=== PATIENT | female | born 1995 | race Caucasian/White ===

== ENCOUNTER 2023-12-11 07:35 | Inpatient (IN) | payer BC, SELFPAY ==
[2023-12-11] VITALS (36 sets, daily range): BP systolic 82–131; BP diastolic 45–84; PULSE 56–96; RESP 16; TEMP 36.6–36.9
[2023-12-11 08:40] LABS: Hematocrit 30.9 % (36.0-48.0); Hemoglobin 10.2 g/dL (12.0-16.0); Mean Corpuscular Hemoglobin 29.9 pg (26.7-34.0); Mean Corpuscular Volume 90.6 fL (81.0-99.0); Platelet Count 175 10^3/uL (150-450); Red Blood Count 3.41 10^6/uL (4.20-5.40); Red Cell Distribution Width 13.2 % (11.0-15.0); White Blood Count 9.1 10^3/uL (4.0-11.0)
[2023-12-11] MEDS: LACTATED RINGER'S SOLUTION 1,000 ML 125 ML IV ×2 (08:49→15:39)
[2023-12-11] MEDS: PENICILLIN G POTASSIUM 5,000,000 UNIT in 0.9 % SODIUM CHLORIDE 100 ML 200 UNIT IV (08:51)
[2023-12-11 09:09] LABS: Amphetamine Screen Urine NEGATIVE (NEGATIVE); Barbiturates Screen Urine NEGATIVE (NEGATIVE); Benzodiazepines Screen Urine NEGATIVE (NEGATIVE); Buprenorphine Screen Urine NEGATIVE (NEGATIVE); Cannabinoid Screen Urine NEGATIVE (NEGATIVE); Cocaine Screen Urine NEGATIVE (NEGATIVE); Methadone Screen Urine NEGATIVE (NEGATIVE); Opiate Screen Urine NEGATIVE (NEGATIVE); Oxycodone Screen Urine NEGATIVE (NEGATIVE); Phencyclidine Screen Urine NEGATIVE (NEGATIVE); Tricyclic Antidepressant Urine NEGATIVE (NEGATIVE)
[2023-12-11 09:10] LABS: Methamphetamines Screen Urine POSITIVE (NEGATIVE)
[2023-12-11] MEDS: PENICILLIN G POTASSIUM 2,500,000 UNIT in 0.9 % SODIUM CHLORIDE 50 ML 100 UNIT IV ×2 (12:31→16:54)
[2023-12-11] MEDS: OXYTOCIN/0.9 % SODIUM CHLORIDE 10 UNITS/500 ML PLAST..BAG 6 UNIT IV (12:50)
--- NOTE | 2023-12-11 14:33 | PM.OBHP ---
OB - H&P: HPI History of Present Illness Chief complaint: INDUCTION : 5 Para: 2 Gestational age based on last menstrual period: 39.5 Indications for induction: other (elective ) History of Present Dating criteria: LMP confirmed by 1st trimester US care: good care Ultrasounds: normal 1st trimester US and normal mid trimester US complications comment: flu A and respiratory infections with this prgnancy Medical complications OB: none Labs Blood type: B (+) positive Rubella: immune RPR/VDLR: nonreactive GBS status: positive HBsAG: negative Review of Systems ROS Status of ROS: 10 or more systems reviewed and unremarkable except as noted in history and below PFSH PFSH Social History Highest level of school completed/degree received: some college, no degree Meds Home Medications and Allergies Home Medications Medication Instructions Recorded Confirmed Type No Known Home Medications 12/11/23 12/11/23 History Allergies Allergy/AdvReac Type Severity Reaction Status Date / Time No Known Drug Allergies Allergy Verified 12/11/23 08:47 Exam Constitutional Vital Signs, click to edit/add: Last Vital Signs Temp 98.4 F 12/11/23 14:17 Pulse 77 12/11/23 14:17 Resp 16 12/11/23 14:17 BP 115/72 12/11/23 14:17 Common normals: no apparent distress HENMT Common normals: normocephalic Eye Common normals: EOMs intact bilaterally Neck & C-Spine Common normals: no lymphadenopathy Lymph Lymphatic: no lymphadenopathy noted Chest Common normals: inspection of chest normal Respiratory Common normals: normal respiratory effort Effort & inspection: able to speak in complete sentences Cardio Common normals: regular rate and regular rhythm Rate: regular rate Rhythm: regular rhythm GI Common normals: Normal to inspection, nondistended, normoactive bowel sounds present Common normals: no CVA tenderness Back & Pelvis Common normals: no CVA tenderness Extremity Common normals: normal to inspection Neuro Common normals: oriented x3 Psych Common normals: mental status grossly normal Results Labs Labs: Short CBC 12/11/23 Range/Units 08:20 WBC 9.1 (4.0-11.0) 10^3/uL Hgb 10.2 L (12.0-16.0) g/dL Hct 30.9 L (36.0-48.0) % Plt Count 175 (150-450) 10^3/uL OB - A/P Assessment and Plan (1) Term :
[2023-12-11] MEDS: ROPIVACAINE HCL/PF 400 MG/200 ML PREMIX 6 MG EPIDURAL (15:38)
[2023-12-11] MEDS: EPHEDRINE SULFATE 50 MG/ML VIAL IV (16:02)
[2023-12-11] MEDS: OXYTOCIN/0.9 % SODIUM CHLORIDE 20 UNITS/1,000 ML PLAST..BAG 125 UNIT IV (18:07)
--- NOTE | 2023-12-11 18:20 | PM.OBPRCVD ---
Procedure Procedure: events: Labor Induction and Labor Augmentation Intrapartal events: None Induction method: per pitocin protocol Delivery augmentation: rupture of membranes Delivery monitor: external FHT and external uterine Route of delivery: Episiotomy Description: none L&D Laceration Description: periurethral - 1st degree Delivery repair: Vicryl Estimated blood loss (mL): 250 Anesthesia type: Epidural Disposition: same day Delivery date: 12/11/23 Gender: female presentation: vertex Placental delivery description: Spontaneous cord description: 3 Vessels heart rate - 1 minute: 100 bpm or Greater respiratory effort - 1 minute: Spontaneous/Strong Cry muscle tone - 1 minute: Active Movement reflex response - 1 minute: Prompt Response color - 1 minute: Bluish Hands or Feet total score - 1 minute: 9 heart rate - 5 minute: 100 bpm or Greater respiratory effort - 5 minute: Spontaneous/Strong Cry muscle tone - 5 minute: Active Movement reflex response - 5 minute: Prompt Response color - 5 minute: Bluish Hands or Feet total score - 5 minute: 9
[2023-12-11] MEDS: IBUPROFEN 400 MG TABLET 800 MG PO (19:32)
[2023-12-11] MEDS: BENZOCAINE/MENTHOL 85 GRAM SPRAY BOTTLE 1 APPLIC TOPICAL (20:09)
[2023-12-11] MEDS: GLYCERIN/WITCH HAZEL PADS 1 PAD TOPICAL (20:10)
[2023-12-12 00:20] VITALS: RESP 18
[2023-12-12 00:28] VITALS: BP 118/65; PULSE 66
[2023-12-12] MEDS: IBUPROFEN 400 MG TABLET 800 MG PO ×2 (05:25→14:56)
--- NOTE | 2023-12-12 07:10 | W.PC.ACHO ---
Registration Status: ADM IN Primary Language: Beninese Preferred Language: Beninese Active Medications Generic Name Dose Route Start Last Admin Trade Name Freq PRN Reason Stop Dose Admin Acetaminophen 650 mg 12/11/23 18:34 Acetaminophen 325 Mg Tablet PO Q6H PRN Mild Pain Al Hydroxide/Mg Hydroxide 2,400 mg 12/11/23 18:34 Magnesium Hydroxide 2,400 Mg/10 Ml Oral.Susp PO Q6H PRN Dyspepsia Benzocaine/Menthol 1 applic 12/11/23 18:34 12/11/23 20:09 Benzocaine/Menthol 85 Gram [place] Bottle TOPICAL 1 applic Q2H PRN Administration Pain Carboprost Tromethamine 250 mcg 12/11/23 07:46 Carboprost Tromethamine 250 Mcg/Ml 1 Ml Vial IM 12/13/23 07:46 Q15M PRN Bleeding Diphtheria/Pertussis/Tetanus Vacc 0.5 ml 12/13/23 09:00 Adacel Diph,Pertuss(Acell),Tet Vac/Pf 0.5 Ml Adult Syringe IM 12/13/23 09:01 .ONCE ONE Docusate Sodium 100 mg 12/12/23 09:00 Docusate Sodium 100 Mg Capsule PO BID SARAH Ephedrine Sulfate 5 mg 12/11/23 13:52 12/11/23 16:02 Ephedrine Sulfate 50 Mg/Ml Vial IV 12/12/23 13:52 5 mg Q5M PRN Administration Blood Pressure - Low Lactated Ringer's 1,000 mls @ 125 mls/hr 12/11/23 08:00 12/11/23 18:00 Lactated Ringers IV Infused .Q8H SARAH Infusion Oxytocin/Sodium Chloride 10 units in 500 mls @ 6 mls/hr 12/11/23 08:00 12/11/23 13:40 Pitocin 10 Unit/500 Ml-Ns IV 4 milliunit/min Q24H SARAH 12 mls/hr Infusion Protocol 2 MILLIUNIT/MIN Ropivacaine/Sodium Chloride 400 mg in 200 mls @ 6 mls/hr 12/11/23 14:00 12/11/23 15:38 Naropin 0.2% 400 Mg/200 Ml Bag EPIDURAL 6 mls/hr Q24H SARAH Administration Ibuprofen 800 mg 12/11/23 18:45 12/12/23 05:25 Ibuprofen 400 Mg Tablet PO 800 mg Q8H SARAH Administration Lidocaine 5 ml 12/11/23 07:46 Lidocaine Viscous 2% 15 Ml Solution TOPICAL ONCE PRN Pain Lidocaine 1 ml 12/11/23 07:46 Lidocaine Hcl 1% 200 Mg/20 Ml Mdv INJ ONCE PRN Pain Lidocaine 5 ml 12/11/23 13:52 Lidocaine Hcl 2% Pf 100 Mg/5 Ml Vial INJ 12/12/23 13:52 Q1H PRN Pain Measles/Mumps/Rubella Vaccine Live 0.5 ml 12/13/23 09:00 Measles,Mumps,Rubella Vacc/Pf 0.5 Ml Vial SQ 12/13/23 09:01 .ONCE ONE Methylergonovine Maleate 0.2 mg 12/11/23 07:46 Methylergonovine Maleate 0.2 Mg/Ml Ampule IM 12/13/23 07:46 ONCE PRN Uterine Contractility/Contract Methylergonovine Maleate 0.2 mg 12/11/23 08:00 Methylergonovine Maleate 0.2 Mg Tablet PO 12/12/23 08:01 Q4H PRN Uterine Contractility/Contract Misoprostol 600 mcg 12/11/23 07:46 Misoprostol 100 Mcg Tablet PO 12/13/23 07:46 ONCE PRN Uterine Bleeding Misoprostol 800 mcg 12/11/23 07:46 Misoprostol 100 Mcg Tablet SL 12/13/23 07:46 ONCE PRN Uterine Bleeding Misoprostol 1,000 mcg 12/11/23 07:46 Misoprostol 100 Mcg Tablet NH 12/13/23 07:46 ONCE PRN Uterine Bleeding Ondansetron HCl 4 mg 12/11/23 07:46 Ondansetron Pf 4 Mg/2 Ml Vial IV Q6H PRN Nausea And Vomiting Ondansetron HCl 4 mg 12/11/23 07:46 Ondansetron 4 Mg Rapdis Tablet SL Q6H PRN Nausea And Vomiting Oxytocin 10 unit 12/11/23 07:46 Oxytocin 10 Unit/Ml Vial IM 12/13/23 07:46 ONCE PRN Bleeding Senna 17.2 mg 12/11/23 20:00 Sennosides 8.6 Mg Tablet PO QHS PRN Constipation Simethicone 80 mg 12/11/23 18:34 Simethicone 80 Mg Tab.Chew PO QID PRN Abdominal Distention Temazepam 15 mg 12/11/23 18:34 Temazepam 15 Mg Capsule PO QHS PRN Sleep Witch Lauren/Glycerin 1 pad 12/11/23 18:34 12/11/23 20:10 Glycerin/Witch Lauren Pads TOPICAL 1 pad Q2H PRN Administration Pain Diet Category Date Time Status Regular Consistency Diet Diet 12/11/23 18:34 Active IV Insertion/Site Date of IV Line Insertion [18g 12/11/23 right Forearm] IV Insertion Time [18g right 08:20 Forearm] Neurology Patient orientation (short person,place,time,situation list) Respiratory Oxygen Delivery Method Room Air Oxygen Delivery Method Room Air Cardiology Heart Sounds Strong,Regular Heart Sounds Strong,Regular
[2023-12-12 08:10] VITALS: BP 120/64; PULSE 69; RESP 16; TEMP 36.6
[2023-12-12 08:12] VITALS: BP 120/64; PULSE 69
[2023-12-12] MEDS: DOCUSATE SODIUM 100 MG CAPSULE PO (08:16)
--- NOTE | 2023-12-12 08:57 | PM.OBPN ---
OB - PN: Subj Subjective Patient comments: no complaints Exam Constitutional Vital Signs, click to edit/add: Last Vital Signs Temp 97.9 F 12/12/23 08:10 Pulse 69 12/12/23 08:12 Resp 16 12/12/23 08:10 BP 120/64 12/12/23 08:12 O2 Del Method Room Air 12/12/23 08:10 Documenting provider has reviewed patient's vital signs: yes Common normals: no apparent distress GI Inspection: normal to inspection Other: uterus firm, nontender, below umbilicus OB - PN: A/P Assessment and Plan (1) Term : Assessment and Plan: Normal Plan Home Plan - Vaginal Delivery day: 7 Plan: routine care, discharge home and follow up 6 weeks Time Spent with Patient Time: Total time spent is greater than 50% in coordination of care (as documented) at patient's floor/unit and/or counseling patient: Total time spent with greater than 50% in coordination of care (as documented) at patient's floor/unit and/or counseling patient: less than 15 minutes
[2023-12-12 15:59] VITALS: BP 116/75; PULSE 84
[2023-12-12 16:12] VITALS: BP 116/75; PULSE 84; RESP 16; TEMP 36.8
--- NOTE | 2023-12-12 19:38 | W.PC.ACHO ---
Registration Status: ADM IN Primary Language: Latvian Preferred Language: Latvian Active Medications Generic Name Dose Route Start Last Admin Trade Name Nicolette PRN Reason Stop Dose Admin Acetaminophen 650 mg 12/11/23 18:34 Acetaminophen 325 Mg Tablet PO Q6H PRN Mild Pain Al Hydroxide/Mg Hydroxide 2,400 mg 12/11/23 18:34 Magnesium Hydroxide 2,400 Mg/10 Ml Oral.Susp PO Q6H PRN Dyspepsia Benzocaine/Menthol 1 applic 12/11/23 18:34 12/11/23 20:09 Benzocaine/Menthol 85 Gram [place] Bottle TOPICAL 1 applic Q2H PRN Administration Pain Carboprost Tromethamine 250 mcg 12/11/23 07:46 Carboprost Tromethamine 250 Mcg/Ml 1 Ml Vial IM 12/13/23 07:46 Q15M PRN Bleeding Diphtheria/Pertussis/Tetanus Vacc 0.5 ml 12/13/23 09:00 Adacel Diph,Pertuss(Acell),Tet Vac/Pf 0.5 Ml Adult Syringe IM 12/13/23 09:01 .ONCE ONE Docusate Sodium 100 mg 12/12/23 09:00 12/12/23 08:16 Docusate Sodium 100 Mg Capsule PO 100 mg BID SARAH Administration Lactated Ringer's 1,000 mls @ 125 mls/hr 12/11/23 08:00 12/11/23 18:00 Lactated Ringers IV Infused .Q8H SARAH Infusion Oxytocin/Sodium Chloride 10 units in 500 mls @ 6 mls/hr 12/11/23 08:00 12/11/23 18:00 Pitocin 10 Unit/500 Ml-Ns IV Infused Q24H SARAH Infusion Protocol 2 MILLIUNIT/MIN Ropivacaine/Sodium Chloride 400 mg in 200 mls @ 6 mls/hr 12/11/23 14:00 12/11/23 15:38 Naropin 0.2% 400 Mg/200 Ml Bag EPIDURAL 6 mls/hr Q24H SARAH Administration Ibuprofen 800 mg 12/11/23 18:45 12/12/23 14:56 Ibuprofen 400 Mg Tablet PO 800 mg Q8H SARAH Administration Lidocaine 5 ml 12/11/23 07:46 Lidocaine Viscous 2% 15 Ml Solution TOPICAL ONCE PRN Pain Lidocaine 1 ml 12/11/23 07:46 Lidocaine Hcl 1% 200 Mg/20 Ml Mdv INJ ONCE PRN Pain Measles/Mumps/Rubella Vaccine Live 0.5 ml 12/13/23 09:00 Measles,Mumps,Rubella Vacc/Pf 0.5 Ml Vial SQ 12/13/23 09:01 .ONCE ONE Methylergonovine Maleate 0.2 mg 12/11/23 07:46 Methylergonovine Maleate 0.2 Mg/Ml Ampule IM 12/13/23 07:46 ONCE PRN Uterine Contractility/Contract Misoprostol 600 mcg 12/11/23 07:46 Misoprostol 100 Mcg Tablet PO 12/13/23 07:46 ONCE PRN Uterine Bleeding Misoprostol 800 mcg 12/11/23 07:46 Misoprostol 100 Mcg Tablet SL 12/13/23 07:46 ONCE PRN Uterine Bleeding Misoprostol 1,000 mcg 12/11/23 07:46 Misoprostol 100 Mcg Tablet ID 12/13/23 07:46 ONCE PRN Uterine Bleeding Ondansetron HCl 4 mg 12/11/23 07:46 Ondansetron Pf 4 Mg/2 Ml Vial IV Q6H PRN Nausea And Vomiting Ondansetron HCl 4 mg 12/11/23 07:46 Ondansetron 4 Mg Rapdis Tablet SL Q6H PRN Nausea And Vomiting Oxytocin 10 unit 12/11/23 07:46 Oxytocin 10 Unit/Ml Vial IM 12/13/23 07:46 ONCE PRN Bleeding Senna 17.2 mg 12/11/23 20:00 Sennosides 8.6 Mg Tablet PO QHS PRN Constipation Simethicone 80 mg 12/11/23 18:34 Simethicone 80 Mg Tab.Chew PO QID PRN Abdominal Distention Temazepam 15 mg 12/11/23 18:34 Temazepam 15 Mg Capsule PO QHS PRN Sleep Witch Lauren/Glycerin 1 pad 12/11/23 18:34 12/11/23 20:10 Glycerin/Witch Lauren Pads TOPICAL 1 pad Q2H PRN Administration Pain Respiratory Oxygen Delivery Method Room Air Oxygen Delivery Method Room Air Oxygen Delivery Method Room Air Cardiology Heart Sounds Strong,Regular Bowels Date of Last Bowel Movement [ 12/12/23 All Quadrants]
[2023-12-14 19:07] LABS: Amphetamines Negative (Cutoff=500)
--- NOTE | 2023-12-15 10:11 | SWNOTE1 ---
SW was not able to see pt prior to discharge. She came in on Thursday12/11/23 and was induced. Pt was in labor most of day Thursday. Pt discharged on Thursday12/12/23. Pt was positive for methamphetamines. She voiced to nursing she has been sick and was taking cough syrup. SW to wait for baby cord results to return and will make report to CPS.
== END 2023-12-12 21:00 | disposition home or self-care (01) | DRG 807 ==
PROVIDERS: Admitting Provider Midwife; PCP Family Medicine; Visit Provider Midwife
DX: O99.824 Streptococcus B carrier state complicating childbirth (principal); Z37.0 Single live birth; O70.0 First degree perineal laceration during delivery; Z3A.39 39 weeks gestation of pregnancy; Z87.440 Personal history of urinary (tract) infections
CPT/HCPCS: 36415; 59050; 59410; 80307; 80326; 85027; 86850; 86900; 86901; 96365; 96366; 96368; 96375; 96376; J2540; J2590; J2795

== ENCOUNTER 2024-01-05 08:13 | Outpatient (OUT) | payer BC, SELFPAY ==
--- OUTSIDE RECORDS SUMMARY | 2024-01-05 08:16 | XMS_ITS | CCD ---
Author Organization [facility] Care Team Providers Care Technical Services Librarian Name Role Phone GAVIN CHRISTIAN Unavailable Unavailable HAY, PEDRO Unavailable Unavailable HAY, PEDRO Unavailable Unavailable JOCELYNN FRANKEL Unavailable Unavailable HAY, PEDRO Unavailable Unavailable Jocelynn Canchola MD Primary Care Pr ovider JOCELYNN CANCHOLA Primary Care Un available FLORO, MARY Admitting Unavailable FLORO, MARY Attending Unavailable JAY, JOSE G Mtz R Admitting Unavailable JAY, JOSE G Mtz R Attending Unavailable FLORO, MARY Primary Care Unavailable JAY, JOSE G Mtz R Attending Unavailable JAY, JOSE G Mtz R Referring Unavailable FLORO, MARY Primary Care Unavailable FLORO, MARY Admitting Unavailable FLORO, MARY Attending Unavailable FLORO, MARY Primary Care Unavailable Jocelynn Frankel MD Primary Care Provider FLORO, MARY L Attending Unavailable FLORO, MARY L Attending Unavailable FLORO, MARY L Referring Unavailable FLORO, MARY L Attending Unavailable FLORO, MARY L Attending Unavailable FLORO, MARY L Attending Unavailable FLORO, MARY L Attending Unavailable FLORO, MARY L Referring Unavailable FLORO, MARY L Attending Unavailable FLORO, MARY L Attending Unavailable Allergies Allergy Classification Reported Allergen(s) Allergy Type Date of Onset Reaction(s) Facility (1 source) MITE EXTRACT Drug Allergy 9 [facility] (1 source) MITE EXTRACT; Translations: [MITE EXTRACT] Drug Allergy 9 [facility] (5 sources) House dust mite Propensity to adverse reactions 9 [facility] Medications Current Medications Medication Drug Class(es) Dates Sig (Normalized) Sig (Original) acetaminophen 500 mg oral tablet (1 source) Start: 03-21-2022 acetaminophen (TYLENOL) tablet 1,000 mg acetaminophen 300 mg / codeine phosphate 30 mg oral tablet (5 sources) Opioid Agonist Start: 11-19-2023 take 1 tablet by mouth every six hours for pain acetaminophen-code ine (TYLENOL/CODEINE #3) 300-30 MG tablet Indications: Right flank pain Take 1 tablet by mouth every 6 (six) hours if needed for moderate pain or severe pain (right flank pain) 10 tablet 0 11/19/2023 Active amoxicillin 500 mg oral tablet (2 sources) Penicillin-class Antibacterial Start: 11-20-2023 End: 11-27-2023 take 1 tablet by mouth in the morning, then take 1 tablet by mouth in the evening, then take 1 tablet by mouth at bedtime amoxicillin (Amoxil) 500 MG tablet Indications: Earache Take 1 tablet (500 mg) by mouth in the morning and 1 tablet (500 mg) in the evening and 1 tablet (500 mg) before bedtime. Do all this for 7 days. 21 tablet 0 11/20/2023 11/27/2023 Active benzocaine 200 mg/ml / menthol 5 mg/ml topical spray (2 sources) Standardized Chemical Allergen Start: 03-21-2022 benzocaine-menthol (DERMOPLAST) 20-0.5 % spray Start: 10-29-2018 End: 03-22-2022 benzocaine-menthol (DERMOPLA ST) 20-0.5 % AERO spray Apply topically 2 times daily 1 Can 3 10/29/2018 03/22/2022 Discontinued (Stop Taking at Discharge) 1 ml carboprost 0.25 mg/ml injection (1 source) Prostaglandin Analog Start: 03-21-2022 carbopros t (HEMABATE) injection 250 mcg docusate sodium 100 mg oral capsule (7 sources) Start: 10-05-2023 take 1 capsule by mouth in the morning docusate sodium (Colace) 100 MG capsule Indications: Anemia during in third trimester Take 1 capsule (100 mg) by mouth in the morning and 1 capsule (100 mg) before bedtime. 60 capsule 5 10/05/2023 Active Start: 10-29-2018 End: 03-22-2022 docusate sodium (COLACE) cap eneida 100 mg ferrous sulfate 325 mg delayed release oral tablet (5 sources) Start: 10-05-2023 take 1 tablet by mouth in the morning ferrous sulfate (Fe Tabs) 325 (65 Fe) MG EC tablet Indications: Anemia during in third trimester Take 1 tablet (325 mg) by mouth in the morning and 1 tablet (325 mg) in the evening. Take with meals. Do not crush, chew, or split.. 60 tablet 5 10/05/2023 Active ibuprofen 800 mg oral tablet (2 sources) Nonsteroidal Anti-inflammatory Drug Start: 10-29-2018 End: 03-22-2022 ibuprofen (ADVIL;MOTRIN) tablet 800 mg lanolin 1000 mg/ml topical cream (2 sources) Start: 03-21-2022 lansinoh lanol in ointment Start: 10-29-2018 End: 03-22-2022 lanolin ointment Apply topic ally as needed. 1 Tube 3 10/29/2018 03/22/2022 Discontinued (Stop Taking at Discharge) 1 ml methylergonovine maleate 0.2 mg/ml injection (1 source) Ergot Derivative Start: 03-21-2022 methylergonovine (METHERGINE) injection 200 mcg miSOPROStol 0.1 mg oral tablet (1 source) Prostaglandin E1 Analog Start: 03-21-2022 miSOPROStol (CYTOTEC) tablet 800 mcg ondansetron 4 mg disintegrating oral tablet (1 source) Serotonin-3 Receptor Antagonist Start: 03-21-2022 ondansetron (ZOFRAN-ODT) disintegrating tablet 8 mg FQTCAF-H2-H6-A84-Z4-H A PO (1 source) take 1 tablet by mouth once daily JNEAKE-A6-A9-B12-D3- FA PO Take 1 tablet by mouth daily 0 Active QAEUDQ-J3-I0-E91-H1-Z ETHYLF-FA PO (5 sources) take 1 tablet by mouth in the morning SLJYKR-A5-A7-B12-D3- METHYLF-FA PO Take 1 tablet by mouth in the morning. 0 Active rho(d) immune globulin, human 1500 unt prefilled syringe (1 source) Human Immunoglobulin G Start: 03-21-2022 rho(D) immune globulin (HYPERRHO S/D) injection 300 mcg 5 ml sodium chloride 9 mg/ml injection (3 sources) Start: 03-21-2022 0.9 % sodium chloride infusion Start: 03-21-2022 sodium chlorid e flush 0.9 % injection 5-40 mL terconazole 4 mg/ml vaginal cream (7 sources) Azole Antifungal Start: 11-18-2023 End: 11-25-2023 terconazole (Terazol 7) 0.4 % vaginal cream Indications: Yeast infection Insert 1 applicator into the vagina at bedtime 45 g 0 11/19/2023 Active witch ricci 500 mg/ml medicated pad (1 source) Start: 03-21-2022 witch ricci-gl ycerin (TUCKS) pad Completed/Discontinued Medications Medication Drug Class(es) Dates Sig (Normalized) Sig (Original) calcium chloride 0.0014 meq/ml / potassium chloride 0.004 meq/ml / sodium chloride 0.103 meq/ml / sodium lactate 0.028 meq/ml injectable solution (1 source) Start: 03-21-2022 End: 03-21-2022 lactated ringers infusion oxytocin (PITOCIN) 30 units in 500 mL infusion (1 source) Start: 03-21-2022 End: 03-21-2022 oxytocin (PITOCIN) 30 units in 500 mL infusion Problems Active Problems Problem Classification Problem Date Documented Da te Episodic/Chronic Fever of unknown origin (1 source) Fever, unspecified; Translations: [Fever, unspecified] Onset: 11-07-2023 Episodic Other and delivery including normal (6 sources) Term ; Translations: [Encounter for supervision of normal , unspecified, unspecified trimester] Onset: 10-27-2018 Episodic Spondylosis; intervertebral disc disorders; other back problems (2 sources) Dorsalgia, unspecified; Translations: [Backache] Onset: 11-07-2023 Episodic Unclassified (1 source) Overexertion from prolonged static or awkward postures, initial encounter; Translations: [OVEREXERT PROLNG STAT/AWK PST INIT] Onset: 05-06-2017 Unclassified (1 source) Other specified diseases and conditions complicating ; Translations: [Other specified diseases and conditions complicating ] Onset: 11-12-2023 Unclassified (1 source) Decreased Movement Onset: 11-07-2023 Unclassified (5 sources) OB Reminders Onset: 05-20-2023 05-20-2023 Past or Other Problems Problem Classification Problem Date Documented Da te Episodic/Chronic Other non-traumatic joint disorders (3 sources) Pain in right ankle and joints of right foot; Translations: [PAIN IN RIGHT ANKLE] Onset: 05-04-2017 Episodic Sprains and strains (1 source) Sprain of unspecified ligament of right ankle, initial encounter; Translations: [SPRAIN UNS LIGAMENT RT ANKLE INIT] Onset: 05-06-2017 Episodic Results Test Name Value Interpretation Reference Range Facility US RENAL COMPLETEon 11-18-19 US RENAL COMPLETE EXAMINATION: US RENAL COMPLETE HISTORY: back pain TECHNIQUE: Ultrasound evaluation was performed of the kidneys and bladder. COMPARISON: None available FINDINGS: Right kidney measures 12.3 x 5.6 x 5 cm. Corticomedullary differentiation is maintained. No contour deforming masses. An echogenic focus within the right kidney measures 5 mm and is most likely a nonobstructing calculus. Mild right-sided hydronephrosis. Left kidney measures 11.2 x 5 x 5.3 cm. Corticomedullary differentiation is maintained. No contour deforming masses or shadowing calculi. Bladder is normal in appearance. Prevoid urinary bladder volume measured at 44 mL. No overt abnormality of the urinary bladder although evaluation is limited secondary to suboptimal distention. The patient voided fully. Bilateral ureteral jets are visualized. IMPRESSION: Mild right-sided hydronephrosis. 5 mm nonobstructing right renal calculus. ELECTRONICALLY SIGNED BY: Juan Obrien, DO Normal Not Available URINALYSISon 11-12-2023 Bilirubin Ql (U) Negative Normal NEG [facility] Comment on above: Performed By: #### U A #### [facility] ([id number]) [address] [place] [address] BLOOD/HGB MODERATE Abnormal NEG [facility] Comment on above: Performed By: #### U A #### [facility] ([id number]) [address] [place] [address] Color (U) YELLOW Normal YELLOW [facility] Comment on above: Performed By: #### U A #### [facility] ([id number]) [address] [place] [address], [place] [address] Glucose Ql (U) Negative Normal NEG [facility] Comment on above: Performed By: #### U A #### [facility] ([id number]) [address] [place] [address], [place] [address] Ketones Ql (U) Negative Normal NEG [facility] Comment on above: Performed By: #### U A #### [facility] ([id number]) [address] [place] [address], [place] [address] Leukocyte esterase Test strip Ql (U) SMALL Abnormal NEG [facility] Comment on above: Performed By: #### U A #### [facility] ([id number]) [address] [place] [address] [place] [address] Nitrite Ql (U) Negative Normal NEG [facility] Comment on above: Performed By: #### U A #### [facility] ([id number]) [address] [place] [address], [place] [address] pH (U) 6.5 [pH] Normal 5.0-8.5 [facility] Comment on above: Performed By: #### U A #### [facility] ([id number]) [address] [place] [address], [place] [address] Protein Ql (U) Negative Normal NEG [facility] Comment on above: Performed By: #### U A #### [facility] ([id number]) [address] [place] [address], [place] [address] R.B.CELLS 10 to 20 Normal 0-5 [facility] Comment on above: Performed By: #### U A #### [facility] ([id number]) [address] [place] [address], [place] [address] Specific gravity (U) [Rel density] 1.015 Normal 1.003-1.035 [facility] Comment on above: Performed By: #### U A #### [facility] ([id number]) [address] [place] [address] SQUAMOUS EPITHELIUM 10 to 20 Normal 0-5 [facility] Comment on above: Performed By: #### U A #### [facility] ([id number]) [address] [place] [address] TURBIDITY CLEAR Normal CLEAR [facility] Comment on above: Performed By: #### U A #### [facility] ([id number]) [address] [place] [address] Urobilinogen Qn (U) 1.0 {Brian'U}/dL Normal <1.1 [facility] Comment on above: Performed By: #### U A #### [facility] ([id number]) [address] [place] [address] W.B.CELLS 5 to 10 Normal 0-5 [facility] Comment on above: Performed By: #### U A #### [facility] ([id number]) [address] [place] [address] SARS/FLU A+B/RSV by NAAT/Mol ecularon 11-07-2023 SARS/FLU A+B/RSV by NAAT/Molecular FLU A PCR Positive (qualifier value) FLU B PCR Negative (qualifier value) RSV by PCR Negative (qualifier value) SARS CoV 2 Not detected (qualifier value) NOTE The Xpert Xpress SARS-CoV-2/Flu/RSV Plus test is a rapid, multiplexed real-time RT-PCR test intended for the simultaneous qualitative detection and differentiation of SARS-CoV-2, influenza A, influenza B and respiratory syncytial virus (RSV) viral RNA from individuals suspected of respiratory viral infection consistent with COVID-19 by their healthcare provider. This test has not been validated in asymptomatic patients. The Xpert Xpress SARS-CoV-2 test is intended for use by qualified and trained operators who are performing tests using either iRezQ or PlayLab systems and is limited to laboratories that meet the CLIA requirements to perform high and moderate complexity tests. The Xpert Xpress SARS-CoV-2/Flu/RSV Plus is only for use under the Food and Drug Administration's Emergency Use Authorization. Results are for the simultaneous detection and differentiation of SARS-CoV-2, influenza A, influenza B and RSV nucleic acids in clinical specimens. SARS-CoV-2, influenza A, influenza B and RSV RNA identified by this test are generally detectable in upper respiratory samples during the acute phase of infection. Positive results are indicative of the presence of the identified virus, but do not rule out bacterial infection or co-infection with other pathogens not detected by this test. Clinical correlation with patient history and other diagnostic information is necessary to determine patient infection status. The agent detected may not be the definite cause of disease. Negative results do not preclude SARS-CoV-2, influenza A, influenza B and RSV infection and should not be used as the sole basis for treatment or other patient management decisions. Negative results must be combined with clinical observations, patient history and epidemiological information. An Invalid result may occur with specimen-associated inhibition unable to be resolved with specimen repeat. Fact Sheet for Healthcare Providers: https://www.fda.gov/ media/651171/downloa d Fact Sheet for Patients: https://www.fda.gov/ media/330552/downloa d [facility] Comment on above: Performed By: #### C OVFLR #### [facility] ([id number]) [address] [place] [address], [place] [address] XR CHEST 2 VWSon 11-07-2023 XR CHEST 2 VWS XR CHEST 2 VWS PA and lateral chest: HISTORY: Cough. 2 views of the chest are obtained. Cardiac and mediastinal contours are within normal limits. Lungs are clear. There is no vascular congestion or effusion. Osseous structures appear intact. IMPRESSION: No acute findings. Finalized by Trip Perea MD on 11/07/2023 10:56 AM [facility] US OB FOLLOW UP TRANSABDOMIN AL APPROACHon 10-07-2023 US OB FOLLOW UP TRANSABDOMINAL APPROACH HISTORY: LMP of 03/09/2023. Follow-up. COMPARISON: 08/05/2023. TECHNIQUE: Sonography of the pelvis was performed by transabdominal technique. Images were obtained and stored in a permanent archive. RESULT: Gestation: Single present. Position: Cephalic Placenta: Location: Posterior Grade: 0 Previa: absent Cervix: Not well visualized. Cardiac activity: 131 bpm BPD: 7.5 cm HC: 27.7 cm AC: 25.8 cm FL: 5.8 cm Amniotic fluid: 14.1, 44.8 percentile Estimated weight (EFW): 1508 g (3 pounds 5 ounces), 31.2 percentile Estimated gestational age: 30 weeks 2 days estimated gestational age by composite. Anatomy: No gross anomalies in the visualized anatomy. IMPRESSION: Single, live intrauterine with estimated 30 weeks 2 days gestational age. ELECTRONICALLY SIGNED BY: Jose Mondragon MD Normal Not Available ABO/RHon 03-22-2022 ABO/Rh Positive [facility] ABO/Rh(D)on 03-22-2022 ABO/Rh(D) Positive [facility] Comment on above: Performed By: #### A BRH #### [facility] [address] [place] [address] Setter Machine: Phil Rivera MD TYPE AND SCREENon 03-22-2022 ABO/Rh Positive [facility] Arm Band Number [id number] [facility] Expiration Date 03/24/2022,2359 [facility] Type + Screenon 03-22-2022 Type + Screen Sample Expiration 03/24/2022,2359 Arm Band Number [id number] ABO/Rh(D) B POSITIVE Antibody Screen NEGATIVE [facility] Comment on above: Performed By: #### T YS #### [facility] [address] [place] [address] Setter Machine: Phil Rivera MD CBC auto differentialon Absolute Eos # 0.17 [facility] Absolute Immature Granulocyte 0.07 [facility] Absolute Lymph # 1.68 [facility] Absolute [place] # 0.83 [facility] Basophils (Bld) [#/Vol] 10*3/uL B ON [facility] Basophils/100 WBC (Bld) 0 % 0 - 2 % B ON [facility] Eosinophils/100 WBC (Bld) 2 % 1 - 4 % [facility] Hematocrit (Bld) [Volume fraction] 33.0 % Low 36.3 - 47.1 % [facility] Hemoglobin (Bld) [Mass/Vol] 11.1 g/dL Low 11.9 - 15.1 g/dL [facility] Immature granulocytes/100 WBC (Bld) 1 % High 0 [facility] Interpretation and review of laboratory results Abnormal [facility] Lymphocytes/100 WBC (Bld) 19 % Low 24 - 43 % [facility] MCH (RBC) [Entitic mass] 31.1 pg 25.2 - 33.5 pg [facility] MCHC (RBC) [Mass/Vol] 33.6 g/dL 28.4 - 34.8 g/dL [facility] MCV (RBC) [Entitic vol] 92.4 fL 82.6 - 102.9 fL [facility] Monocytes/100 WBC (Bld) 10 % 3 - 12 % B ON [facility] NRBC Automated 0.0 0.0 per 100 WBC [facility] Platelet distribution width (Bld) [Ratio] 12.5 % 11.8 - 14.4 % [facility] Platelet mean volume (Bld) [Entitic vol] 11.0 fL 8.1 - 13.5 fL [facility] Platelets (Bld) [#/Vol] 171 10*3/uL [facility] RBC (Bld) [#/Vol] 3.57 10*6/uL Low 3.95 - 5.1 1 m/uL [facility] Segmented neutrophils/100 WBC (Bld) 68 % High 36 - 65 % [facility] Segs Absolute 5.93 [facility] WBC (Bld) [#/Vol] 8.7 10*3/uL [facility] CBC with Diffon 03-21-2022 Abs. Basophil <0.03 Normal 0.00-0.20 [facility] Comment on above: Performed By: #### C DP #### [facility] [address] [place] [address] Dr. [place], [facility] Setter Machine: Phil Rivera MD Abs.Imm.Granulocyte 0.07 k/uL Normal 0.00-0.30 [facility] Comment on above: Performed By: #### C DP #### [address] [place], [facility] Setter Machine: Phil Rivera MD Abs.Neutrophil (Seg) 5.93 k/uL Normal 1.50-8.10 [facility] Comment on above: Performed By: #### C DP #### [address] [place], [facility]83 Setter Machine: Phil Rivera MD Basophils/100 WBC (Bld) 0 % Normal 0-[address] [facility] Comment on above: Performed By: #### C DP #### [address] [place], [facility] Setter Machine: Phil Rivera MD Eosinophils (Bld) [#/Vol] 0.17 10*3/uL Normal 0.00-0.44 [facility] Comment on above: Performed By: #### C DP #### [address] [place], [place] [address] Setter Machine: Phil Rivera MD Eosinophils/100 WBC (Bld) 2 % Normal 1-4 [facility] Comment on above: Performed By: #### C DP #### [address] [place], [facility] Setter Machine: Phil Rivera MD Erythrocyte distribution width (RBC) [Ratio] 12.5 % Normal 11.8-14.4 [facility] Comment on above: Performed By: #### C DP #### [address] [place] [facility] Setter Machine: Phil Rivera MD Hematocrit (Bld) [Volume fraction] 33.0 % Low 36.3-47.1 [facility] Comment on above: Performed By: #### C DP #### [facility] [address] [place] [address] [place] [address] Setter Machine: Phil Rivera MD Hemoglobin (Bld) [Mass/Vol] 11.1 g/dL Low 11.9-15.1 [facility] Comment on above: Performed By: #### C DP #### [facility] [address] [place] [address] [place] [address] Setter Machine: Phil Rivera MD Immature granulocytes/100 WBC (Bld) 1 % High 0 [facility] Comment on above: Performed By: #### C DP #### [facility] [address] [place] [address] [place] [address] Setter Machine: Phil Rivera MD Lymphocytes (Bld) [#/Vol] 1.68 10*3/uL Normal 1.10-3.70 [facility] Comment on above: Performed By: #### C DP #### [facility] [address] [place] [address] [place] [address] Setter Machine: Phil Rivera MD Lymphocytes/100 WBC (Bld) 19 % Low 24-43 [facility] Comment on above: Performed By: #### C DP #### [facility] [address] [place] [address] Dr[place], [facility] Setter Machine: Phil Rivera MD MCH (RBC) [Entitic mass] 31.1 pg Normal 25.2-33.5 [facility] Comment on above: Performed By: #### C DP #### [facility] [address] [place] [address] [place] [address] Setter Machine: Phil Rivera MD MCHC (RBC) [Mass/Vol] 33.6 g/dL Normal 28.4-34.8 [facility] Comment on above: Performed By: #### C DP #### [facility] [address] [place], [place] [id number] Setter Machine: Phil Rivera MD MCV (RBC) [Entitic vol] 92.4 fL Normal 82.6-102.[address] [facility] Comment on above: Performed By: #### C DP #### [facility] [address] [place] [facility]83 Setter Machine: Phil Rivera MD Monocytes (Bld) [#/Vol] 0.83 10*3/uL Normal 0.10-1.20 [facility] Comment on above: Performed By: #### C DP #### [address] [place], [facility]83 Setter Machine: Phil Rievra MD Monocytes/100 WBC (Bld) 10 % Normal 3-[address] [facility] Comment on above: Performed By: #### C DP #### [facility] [address] [place] [address] Dr[place], [facility]83 Setter Machine: Phil Rivera MD Neutrophil (Seg) 68 % High 36-65 [facility] Comment on above: Performed By: #### C DP #### [facility] [address] [place] [address] Dr[place] [facility]83 Setter Machine: Phil Rivera MD NRBC Automated 0.0 per 100 WBC Normal 0.0 [facility] Comment on above: Performed By: #### C DP #### [facility] [address] [place] [id number] Setter Machine: Phil Rivera MD Platelet mean volume (Bld) [Entitic vol] 11.0 fL Normal 8.1-13.5 [facility] Comment on above: Performed By: #### C DP #### [facility] [address] [place] [address] Dr[address] [place] [facility] Setter Machine: Phil Rivera MD Platelets (d) [#/Vol] 171 10*3/uL Normal 138-453 [facility] Comment on above: Performed By: #### C DP #### [facility] [address] [place], [place] [phone] Setter Machine: Phil Rivera MD RBC (d) [#/Vol] 3.57 10*6/uL Low 3.95-5.11 [facility] Comment on above: Performed By: #### C DP #### [facility] [address] [place], [place] [id number] Setter Machine: Phil Rivera MD WBC (d) [#/Vol] 8.7 10*3/uL Normal 3.5-11.3 [facility] Comment on above: Performed By: #### C DP #### [facility] [address] [place], [place] [id number] Setter Machine: Phil Rivera MD DRUG SCREEN MULTI URINEon Amphetamine Screen, Ur Negative NEGATIVE TAB [facility] Barbiturate Screen, Ur Negative NEGATIVE TAB [facility] Benzodiazepine Screen, Urine Negative NEGATIVE [facility] Buprenorphine Urine Negative NEGATIVE [facility] Cannabinoid Scrn, Ur Negative NEGATIVE [facility] [facility] Cocaine Metabolite, Urine Negative NEGATIVE [facility] Methadone Screen, Urine Negative NEGATIVE B [facility] Methamphetamine, Urine Negative NEGATIVE TAB N [facility] Opiates, Urine Negative NEGATIVE [facility] Oxycodone Screen, Ur Negative NEGATIVE [facility] Phencyclidine, Urine Negative NEGATIVE [facility] Propoxyphene, Urine Negative NEGATIVE [facility] Tricyclic Antidepressants, Urine Negative NEGATIVE [facility] Comment on above: Drug screen results are to be used for medical purposes only. All positive results are unconfirmed. Testing for employment or legal uses should be sent to a reference laboratory for confirmation. [facility] Drug Scr, Abuse, Uron 2021 Amphetamine(s),Ur Negative Normal NEG [facility] Comment on above: Performed By: #### D AU #### [facility] [address] [place], [place] [id number] Setter Machine: Phil Rivera MD Barbiturate(s),Ur Negative Normal NEG [facility] Comment on above: Performed By: #### D AU #### [facility] [address] [place], [place] [id number] Setter Machine: Phil Rivera MD Benzodiazepine(s) Negative Normal NEG [facility] Comment on above: Performed By: #### D AU #### [facility] [address] [place], [place] [id number] [employer] Machine: Phil Rivera MD Buprenorphrine, Ur Negative Normal [facility] Comment on above: Performed By: #### D AU #### [facility] [address] [place], [place] [id number] Setter Machine: Phil Rivera MD Cannabinoid(s),Ur Negative Normal NEG [facility] Comment on above: Performed By: #### D AU #### [address] [place], [place] [id number] [employer] Machine: Phil Rivera MD Cocaine Metabolite Negative Normal [facility] Comment on above: Performed By: #### D AU #### [facility] [address] [place] [address] Setter Machine: Phil Rivera MD Methadone Ql (U) Negative Normal NEG [facility] Comment on above: Performed By: #### D AU #### [facility] [address] [place], [place] [id number] Setter Machine: Phil Rivera MD Methamphetamine, Ur Negative Normal [facility] Comment on above: Performed By: #### D AU #### [facility] [address] [place], [place] [id number] Setter Machine: Phil Rivera MD Opiate(s), Ur Negative Normal NEG [facility] Comment on above: Performed By: #### D AU #### [facility] [address] [place] [address] [place], [place] [phone] Setter Machine: Phil Rivera MD Oxycodone, Urine Negative Normal NEG [facility] Comment on above: Performed By: #### D AU #### [facility] [address] [place] [address] [place], [place] [phone] Setter Machine: Phil Rivera MD Phencyclidine, Ur Negative Normal NEG [facility] Comment on above: Performed By: #### D AU #### [facility] [address] [place] [address] [place], [place] [phone] Setter Machine: Phil Rivera MD Propoxyphene,Urine Negative Normal NEG [facility] Comment on above: Performed By: #### D AU #### [facility] [address] [place] [address] [place], [place] [phone] Setter Machine: Phil Rivera MD Tricyclic antidepressants Screen Ql (U) Negative Normal [facility] Comment on above: Result Comment: Drug screen results are to be used for medical purposes only. All positive results are unconfirmed. Testing for employment or legal uses should be sent to a reference laboratory for confirmation. Performed By: #### D AU #### [facility] [address] [place] [address] [place], [place] [phone] Setter Machine: Phil Rivera MD GBS, External Resulton 02-27 GBS, External Result Positive [facility] Work Phone: [facility] [employer] Phone: Q - STREPTOCOCCUS,GROUP B CU LTUREon 02-27-2022 STREPTOCOCCUS, GROUP B CULTURE SEE NOTE Abnormal [facility] [employer] Comment on above: Order Comment: [facility] Testing performed at: [facility], [facility], [address], [address] [place] [address], [address] [place] [address], Hot Metal Charger: Josiah Draper MD [facility] Collection Date/Time: [facility] Results Received Date/Time: [facility] Reported Date/Time: Result Comment: STRE PTOCOCCUS, GROUP B CULTURE Micro Number: [id number] Test Status: Final Specimen Source: Vaginal/anorectal Specimen Quality: Adequate Result: Group B Streptococcus isolated Beta-hemolytic streptococci are predictably susceptible to Penicillin and other beta-lactams. Susceptibility testing not routinely performed. Please contact the laboratory within 3 days if susceptibility testing is desired. Note per CDC guidelines optimal recovery is achieved by swabbing both the lower vagina and rectum (through the anal sphincter). Performed By: #### 5 [id number] #### [facility] Default [address] [place] [address] Q - CBC W/DIFF AND PLTon BASOABS 32 cells/uL Normal 0-200 [facility] Comment on above: Order Comment: [facility] Testing performed at: [facility], [address], [address] [place] [address], [address] [place] [address], Hot Metal Charger: Josiah Draper MD [facility] Collection Date/Time: [facility] Results Received Date/Time: [facility] Reported Date/Time: Performed By: #### 1 5040E, 42A #### [facility] [address] [place] [address] Basophils/100 WBC (Bld) 0.5 % Normal N [facility] Comment on above: Order Comment: [facility] Testing performed at: [facility], [facility], [address], [address] [place] [address], [address] [place] [address], Hot Metal Charger: Josiah Draper MD [facility] Date/Time: [facility] Results Received Date/Time: [facility] Reported Date/Time: Performed By: #### 1 5040E, 42A #### [facility] [address] [place] [address] EOSABS 82 cells/uL Normal 15-500 [facility] [employer] Comment on above: Order Comment: [facility] performed at: [facility], [facility], [address] [place] [address], [address] [place] [address], [address] [place] [address], Hot Metal Charger: Josiah Draper MD [facility] Date/Time: [facility] Results Received Date/Time: [facility] Reported Date/Time: Performed By: #### 1 5040E, 42A #### [facility] [address] [place] [address] Eosinophils/100 WBC (Bld) 1.3 % Normal [facility] [employer] Comment on above: Order Comment: [facility] performed at: [email or web address], [facility], [address] [place] [address], [address] [place] [address], [address] [place] [address], Hot Metal Charger: Josiah Draper MD [facility] Date/Time: [facility] Results Received Date/Time: [facility] Reported Date/Time: Performed By: #### 1 5040E, 42A #### [facility] [address] [place] [address] Erythrocyte distribution width (RBC) [Ratio] 12.4 % Normal 11.0-15.0 [facility] [employer] Comment on above: Order Comment: [facility] performed at: [email or web address], [facility], [address] [place] [address], [address] [place] [address], [address] [place] [address], Hot Metal Charger: Josiah Draper MD [facility] Date/Time: [facility] Results Received Date/Time: [facility] Reported Date/Time: Performed By: #### 1 5040E, 42A #### [facility] [address] [place] [address] Hematocrit (Bld) [Volume fraction] 33.6 % Low 35.0-45.0 [facility] [employer] Comment on above: Order Comment: [facility] performed at: [facility], [facility], [address] [place] [address], [address] [place] [address], [address] [place] [address], Hot Metal Charger: Josiah Draper MD [facility] Date/Time: [facility] Results Received Date/Time: [facility] Reported Date/Time: Performed By: #### 1 5040E, 42A #### [facility] [address] [place] [address] Hemoglobin (Bld) [Mass/Vol] 11.2 g/dL Low 11.7-15.5 [facility] [employer] Comment on above: Order Comment: [facility] Testing performed at: [facility], [facility], [address] [place] [address], [address] [place] [address], [address] [place] [address], Hot Metal Charger: Josiah Draper MD [facility] Date/Time: [facility] Results Received Date/Time: [facility] Reported Date/Time: Performed By: #### 1 5040E, 42A #### [facility] [address] [place] [address] Lymphocytes (Bld) [#/Vol] 1.424 10*3/uL Normal 850-3900 [facility] [employer] Comment on above: Order Comment: [facility] Testing performed at: [facility], [facility], [address] [facility], [address] [place] [address], [address] [place] [address], Hot Metal Charger: Josiah Draper MD [facility] Date/Time: [facility] Results Received Date/Time: [facility] Reported Date/Time: Performed By: #### 1 5040E, 42A #### [facility] [address] [place] [address] Lymphocytes/100 WBC (Bld) 22.6 % Normal [facility] [employer] Comment on above: Order Comment: [facility] performed at: [facility], [facility], [address] [place] [address], [address] [place] [address], Hot Metal Charger: Josiah Draper MD [facility] Date/Time: [facility] Results Received Date/Time: [facility] Reported Date/Time: Performed By: #### 1 5040E, 42A #### [facility] [address] [place] [address] MCH (RBC) [Entitic mass] 32.3 pg Normal 27.0-33.0 [facility] Specialist Comment on above: Order Comment: [facility] performed at: [facility], [facility], [address] [place] [address], [address] [place] [address], [address] [place] [address], Hot Metal Charger: Josiah Draper MD [facility] Date/Time: [facility] Results Received Date/Time: [facility] Reported Date/Time: Performed By: #### 1 5040E, 42A #### [facility] [address] [place] [address] MCHC (RBC) [Mass/Vol] 33.3 g/dL Normal 32.0-36.0 [facility] Specialist Comment on above: Order Comment: [facility] Testing performed at: [facility], [facility], [address] [place] [address], [address] [place] [address], Hot Metal Charger: Josiah Draepr MD [facility] Date/Time: [facility] Results Received Date/Time: [facility] Reported Date/Time: Performed By: #### 1 5040E, 42A #### [facility] [address] [place] [address] MCV (RBC) [Entitic vol] 96.8 fL Normal 80.0-100.0 N [facility] Comment on above: Order Comment: [facility] performed at: [facility], [facility], [address] [place] [address], [address] [place] [address], Hot Metal Charger: Josiah Draper MD [facility] Date/Time: [facility] Results Received Date/Time: [facility] Reported Date/Time: Performed By: #### 1 5040E, 42A #### [facility] [address] [place] [address] MONOABS 567 cells/uL Normal 200-950 [facility] Comment on above: Order Comment: [facility] Testing performed at: [facility], [facility], [address] [facility], [address] [place] [address], [address] [place] [address], Hot Metal Charger: Josiah Draper MD [facility] Date/Time: [facility] Results Received Date/Time: [facility] Reported Date/Time: Performed By: #### 1 5040E, 42A #### [facility] [address] [place] [address] Monocytes/100 WBC (Bld) 9.0 % Normal [facility] Comment on above: Order Comment: [facility] Testing performed at: [facility], [address] [place] [address], [address] [place] [address], [address] [place] [address], Hot Metal Charger: Josiah Draper MD [facility] Collection Date/Time: [facility] Results Received Date/Time: [facility] Reported Date/Time: Performed By: #### 1 504, 42A #### [facility] [address] [place] [address] Neutrophils (Bld) [#/Vol] 4.196 10*3/uL Normal 3498-6915 [facility] Comment on above: Order Comment: [facility] performed at: [facility], [address] , [address] [place] [address], [address] [place] [address], Hot Metal Charger: Josiah Draper MD [facility] Collection Date/Time: [facility] Results Received Date/Time: [facility] Reported Date/Time: Performed By: #### 1 5040E, 42A #### [facility] [address] [place] [address] Neutrophils/100 WBC (Bld) 66.6 % Normal [facility] Comment on above: Order Comment: [facility] performed at: [facility], [facility], [address] , [address] [place] [address], [address] [place] [address], Hot Metal Charger: Josiah Draper MD [facility] Date/Time: [facility] Results Received Date/Time: [facility] Reported Date/Time: Performed By: #### 1 5040E, 42A #### [facility] [address] [place] [address] Platelet mean volume (Bld) [Entitic vol] 10.1 fL Normal 7.5-12.5 [facility] Comment on above: Order Comment: [facility] Testing performed at: [facility], [facility], [address] [facility], [address] [place] [address], [address] [place] [address], Hot Metal Charger: Josiah Draper MD [facility] Collection Date/Time: [facility] Results Received Date/Time: [facility] Reported Date/Time: Performed By: #### 1 5040E, 42A #### [facility] [address] [place] [address] Platelets (Bld) [#/Vol] 192 10*3/uL Normal 140-400 [facility] Specialist Comment on above: Order Comment: [facility] Testing performed at: [facility], [facility], [address] , [address] [place] [address], [address] [place] [address], Hot Metal Charger: Josiah Draper MD [facility] Collection Date/Time: [facility] Results Received Date/Time: [facility] Reported Date/Time: Performed By: #### 1 5040E, 42A #### [facility] [address] [place] [address] RBC (Bld) [#/Vol] 3.47 10*6/uL Low 3.80-5.10 [facility] Comment on above: Order Comment: [facility] Testing performed at: [facility], [facility], [address] , [address] [place] [address], [address] [place] [address], Hot Metal Charger: Josiah Draper MD [facility] Collection Date/Time: [facility] Results Received Date/Time: [facility] Reported Date/Time: Performed By: #### 1 Makayla, 42A #### [facility] [address] [place] [address] WBC (Bld) [#/Vol] 6.3 10*3/uL Normal 3.8-10.8 Sebastian eli [place] [employer] Developer Comment on above: Order Comment: [facility] performed at: [facility], [facility], [address] [facility], [address] [place] [address], [phone], Hot Metal Charger: Josiah Draper MD [facility] Collection Date/Time: [facility] Results Received Date/Time: [facility] Reported Date/Time: Performed By: #### 1 504Marie, 42A #### [facility] Default [address] [place] [address] Q - GLUCOSE,GESTATIONAL SCRE EN(50G)-135 CUTOFFon 01-01-2022 Glucose [Mass/Vol] 60 mg/dL Low <135 Sebastian rn [place] [employer] Comment on above: Order Comment: [facility] performed at: [facility], [facility], [address] [facility], [address] [place] [address], [phone], Hot Metal Charger: Josiah Draper MD [facility] Collection Date/Time: [facility] Results Received Date/Time: [facility] Reported Date/Time: Performed By: #### 1 5040E, 42A #### [facility] Default [address] [place] [address] US OB 2nd/3rd Trimesteron US OB 2nd/3rd Trimester FINDINGS: Comparison is made with the prior examination of August 27, 2021. A single, viable intrauterine is present with adequate cardiac (134 beats per minute) and activity and amniotic fluid volume. Amniotic fluid index is 10.0 cm. Morphology is grossly normal. The cervix is long and closed, 4.9 cm. The placenta is anterior, not associated with the cervical os. The current sonographic age is 19 weeks and 0 days, based on the following measurements: BPD 4.2 cm (18 weeks, 5 days) Head Lwrqvczrwbgje83.3 cm (19 weeks, 0 days) Abdominal Vmultppfletdk56.9 cm (19 weeks, 2 days) Femur Length 3.0 cm (19 weeks, 2 days) PresentationBreech Placenta Anterior Grade I Weight (g) by Percentile 13.6%* These measurements result in an estimated date of delivery of April 01, 2022 . The current estimated weight is 282 grams (10 ounces). IMPRESSION: 1. Single, viable intrauterine , current sonographic age of 19 weeks and 0 days, with an estimated date of delivery of April 01, 2022. Estimated date of delivery on the prior examination was April 01, 2022. 2. ABELARDO of 10.0 cm. *Estimated Weight (g) by Percentile is based upon an accurate estimated age based on last menstrual period. Report reported and signed by Christopher Hoffmann on 11/06/2021 0958 Normal [facility] Geospatial Developer ABO, External Resulton 08-27 ABO, External Result B [employer] Phone: C. Trachomatis, External Res [facility] 08-27-2021 C. Trachomatis, External Result Not detected [employer] Phone: HIV, External Resulton 08-27 HIV, External Result Non-Reactive TAB [employer] Phone: Hepatitis B, External Result on 08-27-2021 Hep B, External Result HBSAG non reactive [employer] Phone: N. Gonorrhoeae, External Res [facility] 08-27-2021 N. Gonorrhoeae, External Result Not detected [employer] Phone: No Panel Informationon 08-27 ABO, External Result Positive [employer] Phone: [employer] Phone: No Panel InformationOrdered By: Mary Morton on 08-27-2021 Rh Factor, External Result Positive [facility] RPR, External Labon 08-27-20 21 RPR, External Result Non-Reactive TAB N [employer] Work Phone: Rubella Titer, External Resu lton 08-27-2021 Rubella Titer, External Result immune [facility] [employer] Work Phone: XR ANKLE RT MIN 3 VIEWSon XR ANKLE RT MIN [address] [place] [phone] Patient: CHET ROBINS Exam Date: 05/04/2017DOB: 1995 Gender:F : DR PEDRO SUH . Admission #: [id number] : DR JOCELYNN FRANKEL M.D. Order #: [id number] HERE TO VIEW EXAM RADIOLOGY REPORT PROCEDURE: RADIOGRAPH ANKLE RIGHT MIN 3 VIEWS COMPARISON: None. INDICATIONS: Acute right ankle pain after injury; lateral ankle pain FINDINGS: BONES: No fracture, acute abnormality, or significant arthropathy. SOFT TISSUES: Mild anterior lateral soft tissue swelling.EFFUSION: None visible. OTHER: Negative. CONCLUSION: 1. No acute bone abnormality. Dictated by: Gavin Christian M.D. on 05/04/2017 at 10:32 Approved by: Gavin Christian M.D. on 05/04/2017 at 10:34 Normal [facility] Vital Signs Date Time Vital Sign Value Performing Clinician Facility 12-02-2023 14:52-0500 Body mass index (BMI) [Ratio] 34.2 kg/m2 Mary [employer] [facility] Work Phone: [facility] 12-02-2023 14:52-0500 Body weight 86.18 kg Mary [employer] Work Phone: [facility] 12-02-2023 14:52-0500 Diastolic blood pressure 80 mm[Hg] Mary Dobson [employer] Work Phone: [facility] 12-02-2023 14:52-0500 Systolic blood pressure 120 mm[Hg] Mary Dobson CNM Work Phone: [facility] 11-24-2023 15:23-0500 Body mass index (BMI) [Ratio] 34.2 kg/m2 Mary Dobsno CNM Work Phone: [facility] 11-24-2023 15:23-0500 Body weight 86.18 kg Mary GONZALEZM Work Phone: [facility] 11-24-2023 15:23-0500 Diastolic blood pressure 70 mm[Hg] Mary GONZALEZM Work Phone: [facility] 11-24-2023 15:23-0500 Systolic blood pressure 110 mm[Hg] Mary GONZALEZM Work Phone: [facility] 03-22-2022 16:43-0400 Body temperature 97.39 [degF] Mary Dobson APRN - CNM Work Phone: [facility] [employer] 03-22-2022 16:43-0400 Diastolic blood pressure 77 mm[Hg] Mary Dobson APRN - CNM Work Phone: [employer] [facility] [employer] 03-22-2022 16:43-0400 Heart rate 80 /min Mary Dobson APRN - CNM Work Phone: [facility] [employer] 03-22-2022 16:43-0400 Respiratory rate 16 /min Mary Dobson APRN - CNM Work Phone: [facility] [employer] 03-22-2022 16:43-0400 Systolic blood pressure 131 mm[Hg] Mary Dobson APRN - CNM Work Phone: [facility] [employer] 03-21-2022 17:11-0400 SaO2% (BldA) [Mass fraction] 100 % Mary Dobson APRN - CNM Work Phone: [facility] [employer] 03-21-2022 07:55-0400 Body height 167.6 cm Mary Dobson APRN - CNM Work Phone: [facility] 03-21-2022 07:55-0400 Body mass index (BMI) [Ratio] 31.47 kg/m2 Mary Edgeo [employer] - CNM Work Phone: [facility] 03-21-2022 07:55-0400 Body weight 88.45 kg Mary Dobson [employer] - CNM Work Phone: [facility] Encounters Encounter Date Encounter Type Care Provider Facility Start: 12-24-2023 End: 12-25-2023 ambulatory MARY L FLORO Not Available Start: 12-09-2023 End: 12-10-2023 ambulatory MARY L FLORO Not Available Start: 12-02-2023 End: 12-03-2023 ambulatory MARY L FLORO Not Available Start: 12-02-2023 End: 12-02-2023 Subsequent care visit Mary L Floro CNM Work Phone: [facility] Comment on above: Encounter for superv ision of other normal , third trimester (Primary Dx) Start: 12-02-2023 Bamboo flowsheet Mary L Misha ro CNM Work Phone: [facility] Start: 12-02-2023 Bamboo flowsheet Mary L Misha ro CNM Work Phone: [facility] Start: 11-24-2023 End: 11-25-2023 ambulatory MARY L FLORO Not Available Start: 11-24-2023 End: 11-24-2023 Subsequent care visit Mary L Floro CNM Work Phone: [facility] Comment on above: Encounter for superv ision of other normal , third trimester (Primary Dx) Start: 11-18-2023 End: 11-19-2023 ambulatory MARY L FLORO Not Available Start: 11-12-2023 End: 11-13-2023 ambulatory MARY L FLORO Not Available Start: 11-12-2023 End: 11-12-2023 ambulatory MARY FLORO [facility] Start: 11-07-2023 End: 11-08-2023 ambulatory JOSE G Jade JAY [facility] Start: 11-07-2023 End: 11-07-2023 ambulatory JOSE G Jade JAY [facility] Start: 10-29-2023 End: 10-30-2023 ambulatory MARY DOBSON Not Available Start: 10-07-2023 End: 10-08-2023 ambulatory MARY EDGEO Not Available Start: 09-07-2023 End: 09-08-2023 ambulatory MARY EDGEO Not Available Start: 03-21-2022 End: 03-22-2022 Evaluation and management of inpatient [facility] Start: 03-21-2022 End: 03-22-2022 Evaluation and management of inpatient Mary oDbson [employer] - CNM Work Phone: [facility] Start: 05-04-2017 End: 05-04-2017 Ambulatory GAVIN CHRISTIAN Facility: Procedures Date Procedure Procedure Detail Performing Clinician Start: 03-22-2022 Blood typing serolog ic abo Silke P Hotelling [employer] - CNM Work Phone: Start: 03-22-2022 Antibody screen Mary Dobson [employer] - CNM Work Phone: Start: 03-21-2022 Blood count complete auto&auto difrntl wbc Mary Dobson [employer] - CNM Work Phone: Start: 03-21-2022 Blood typing serolog ic abo Silke P Hotelling [facility] [employer] - CNM Work Phone: Start: 02-27-2022 GBS, EXTERNAL RESULT Hi storical Provider Start: 08-27-2021 ABO, EXTERNAL RESULT Hi rajical Provider Start: 08-27-2021 C. TRACHOMATIS, EXTE RNAL RESULT Historical Provider Start: 08-27-2021 HEPATITIS B, EXTERNA L RESULT Historical Provider Start: 08-27-2021 HIV, EXTERNAL RESULT Hi storical Provider Start: 08-27-2021 N. GONORRHOEAE, EXTE RNAL RESULT Historical Provider Start: 08-27-2021 RH FACTOR, EXTERNAL RESULT Historical Provider Start: 08-27-2021 RPR, EXTERNAL RESULT Hi storical Provider Start: 08-27-2021 RUBELLA TITER, EXTER NAL RESULT Historical Provider Plan of Treatment Date Care Activity Detail Author Start: 12-09-2023 End: 12-09-2023 Patient encounter procedure 12/09/2023 9:00 AM EST Routine [facility] [address] [place] [address] Mary Dobson CNM [address] [place], [place] [id number] [facility] Start: 12-02-2023 End: 12-02-2023 Patient encounter procedure [facility] Comment on above: Arrived Start: 06-19-2023 Influenza vaccination Influenza Vacc ine (#1) [facility] Start: 07-08-2022 DTaP/Tdap/Td vaccine (7 - Tdap) DTaP/Tdap/Td vaccine (7 - Tdap) [facility] [employer] [facility] Start: 06-19-2022 Influenza vaccination Flu vacc ine (Season Ended) [facility] Start: 03-25-2019 Screening for Chlamy jesica trachomatis Chlamydia screen [facility] Start: 2017 Screening for malign ant neoplasm of cervix Pap smear [facility] [employer] [facility] Start: 2014 Hepatitis C screening Hepatitis C sc reen [facility] Start: 2008 Depression Screen Depression Screen [facility] Start: 2007 HPV vaccine (1 - 2-d ose series) HPV vaccine (1 - 2-dose series) [employer] [facility] [employer] Start: 2001 COVID-19 Vaccine (1) COVID-19 Vaccin e (1) [employer] [facility] [employer] [facility] Start: 1997 Varicella vaccine (1 of 2 - 2-dose childhood series) Varicella vaccine (1 of 2 - 2-dose childhood series) [facility] End: 03-21-2022 RHOGAM RHOGAM Blood Bank Routine One Time for 1 Occurrences starting 03/21/2022 until 03/21/2022 [employer] Work Phone: Comment on above: One Time for 1 Occur rences starting 03/21/2022 until 03/21/2022 Immunizations Immunization Date Immunization Notes Care Provider Vidhi bynum 03-21-2022 diphtheria, tetanus toxoids and acellular pertussis vaccine, unspecified formulation Mary Dobson [employer] Work Phone: [employer] Work Phone: 03-21-2022 measles, mumps and rubella virus vaccine Maryjared Dobson [employer] Work Phone: [employer] Work Phone: Payers Date Payer Category Payer Unknown BCBS BCBS [id number] 2022-Present [phone] [address] [place] [address] [id number] 2022 Unknown [id number] 2018 Medicaid [id number] 1996 Unknown [id number] 73 1996 Unknown [id number] 286 1996 Unknown [id number] 286 1996 Unknown [id number] 286 1996 Unknown [id number] [id number] 259 1996 Unknown [id number] [id number] 259 1996 Unknown [id number] [id number] 259 1996 Unknown [id number] [id number] 259 1996 Unknown [id number] [id number] 259 1996 Unknown [id number] [id number] 259 1996 Unknown [id number] [id number] 259 1996 Unknown [id number] [id number] 259 1996 Unknown [id number] 259 1996 Unknown [id number] 259 1959 Private Health Insurance [id number] Social History Date Type Detail Facility Start: 10-27-2018 End: 05-10-2023 Tobacco smoking status [facility] Never smoked tobacco [employer] Phone: Start: 10-27-2018 End: 05-10-2023 Tobacco use and exposure Smokeless tobacco non-user [employer] Phone: Start: 03-21-2022 Alcohol intake 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 (finding) [employer] Phone: Start: 1996 Sex Assigned At Not on file B ON [email or web address] Phone: Start: 08-17-2023 Alcohol intake Ex-drinker (finding) [facility] Start: 05-19-2023 History of Social function [facility] Start: 05-19-2023 Tobacco use panel [facility] Start: 05-10-2023 Alcohol Comment Alcohol: 1 or 2 drinks on a typical day/monthly or less Caffeine: 1-2 cups/day coffee [facility] Start: 03-23-2023 [facility] Start: 1995 Sex Assigned At Female N [facility] Start: 05-11-2023 Gender identity Identifies as female gender (finding) [facility] Goals Date Patient Goal Desired Activity /State Personal health goal History of Present illness Narrative 11-24-2023 Mary Dobson CNM - 11/24/2023 3:30 PM EST Note Date & Type Note Facility 11-24-2023 History of Presen t illness Narrative Subjective No chief complaint on file. Chet Robins is a 28 y.o. at 37w1d with a working estimated date of delivery of 12/14/2023, by Last Menstrual Period who presents for a routine visit. She denies vaginal bleeding, leakage of fluid, decreased movements, or contractions. Her is complicated by: Objective Physical Exam weight: 190 lb Expected Total Weight Gain: 11 lb-19 lb Pregravid BMI: 32.02 BP: 110/70 Urine glucose-negative,protein-negative Assessment/Plan Diagnoses and all orders for this visit: Encounter for supervision of other normal , third trimester Continue vitamin. Labs reviewed. GBS POSITIVE Expected mode of delivery Follow up in 1 week for a routine visit. documented in this encounter [facility] Discharge instructions 03-22-2022 Instructions Note Date & Type Note Facility 03-22-2022 Hospital Discharg e instructions Mary Morton RN - 03/22/2022 Follow-up with your OB doctor as specified. [facility] OB Department phone: Sarah Dobson, MSN, [place], ABRAN [address]ETShantanu [facility] [address] DIET Eat a well balanced diet focusing on foods high in fiber and protein. Drink plenty of fluids especially water. To avoid constipation you may take a mild stool softener as recommended by your doctor or database security administrator. ACTIVITY Gradually increase your activity. Resume exercise regimen only after advice by your doctor or database security administrator. Avoid lifting anything heavier than a gallon of milk for SIX weeks. Avoid driving until your doctor or database security administrator has given their approval. Rise slowly from a lying to sitting and then a standing position. Climb stairs one at a time. Use caution when carrying your baby up and down the stairs. NO SEXUAL Activity for 4-6 weeks or until advised by your doctor; Nothing in vagina: intercourse, tampons, or douching. Be prepared to discuss family planning at your follow-up OB visit. You may feel tired or have a lack of energy. You may continue your vitamin to replenish nutrients post delivery. Nap when baby naps to catch up on sleep. EMOTIONS You may feel asencio, sad, teary, & overwhelmed. Contact your OB provider if you feel you may be showing signs of depression, or have thoughts of harming yourself or your . If will not stop crying, contact another adult for help or place infant in their crib on their back and take a break. NEVER shake your infant. BLEEDING Vaginal bleeding will decrease in amount over the next few weeks. You will notice that as your activity increases, your flow may increase. This is your body's way of telling you, you need to take things easier and rest more often. Call your care provider if you are saturating more than one maxi pad in an hour & resting does not help. BREAST CARE Take medications as recommended by your doctor or database security administrator for pain If you develop a warm, red, tender area on your breast or develop a fever contact your OB provider. For moms: If you become engorged, feeding may be more difficult or painful for 1-2 days. You may find it helpful to hand express some milk so that the can latch on more easily. While , continue to take your vitamins as directed by your doctor or database security administrator. Refer to the booklet in the folder/binder for more information. If you feel you need more assistance or have questions, please call Mel Sales IBGEORGETTE, business solutions consultant, at or the OB department to schedule an appointment or phone consultation. For more FREE help, visit the Support Group on Thursday evenings at 7 pm in the OB department. For NON- moms: You may apply ice packs to your breasts over your bra for twenty minutes at a time for comfort. Avoid stimulation to your breasts, when showering allow the water to strike your back not your breasts. Wear a good fitting bra until your milk dries, such as a sports bra. RADHA CARE Use the radha-bottle after toileting until bleeding stops. Cleanse your perineum from front to back If used, stitches will dissolve in 4-6 weeks. You may use a sitz bath or soak in a clean tub as needed for comfort. Kegel exercises will help restore bladder control. SWELLING Try to keep your legs elevated when you are sitting. When lying down keep your legs elevated. When wearing stocking or socks, make sure they are not too tight. WHEN TO CALL THE DOCTOR If you have a temp of 100.6 or more. If your bleeding has increased and you are saturating a pad in an hour. Your abdomen is tender to touch. You are passing blood clots bigger than the size of a lemon. If you are experiencing extreme weakness or dizziness. If you are having flu-like symptoms such as achy muscles or joints. There is a foul smell or a green color to your vaginal bleeding. If you have pain that cannot be relieved. You have persistent burning or frequency with urination. Call if you have concerns about your well-being. You are unable to sleep, eat, or are having thoughts of harming yourself or your baby. You have swelling, bleeding, drainage, foul odor, redness, or warmth in/around your incision or stitches. You have a red, warm, tender area in your calf. documented in this encounter [facility] [employer] Work Phone: History of Present illness Narrative 03-21-2022 Jenifer Velasquez RN - 03/21/2022 7:30 PM ANNALEETCember Velasquez RN - 03/21/2022 7:[address] CNM - 03/21/2022 9:21 AM EDT Note Date & Type Note Facility 03-21-2022 History of Present illness Narrative Recovery complete at this time. Bookmaker'S Clerk contacted Bharati Dobson CNM at this time to update that patients blood type is crossing over as B negative due to it being that blood type back in 2018. Bookmaker'S Clerk was verifying if patient would need to receive rhogam or if infants blood type needed to be ran. Per Bharati Dobson CNM, on 08/27/2021, patients blood type was B POSITIVE, therefore patient does not need rhogam and infants cord blood does not need to be ran to obtain blood type. No further orders received at this time. AROM Small amount of clear fluid SVE 2 inner os 3 outer os Update to Alexandr Dobson APRN, CNM documented in this encounter [facility] Work Phone: Clinical Note 01-15-2022 Note Date & Type Note Facility 01-15-2022 Note FINDINGS: Comparison is made with prior ultrasound evaluations of August 27, 2021 and November 06, 2021. A single, live intrauterine is present with normal cardiac rate of 123 beats per minute. Normal activity and amniotic fluid volume. Amniotic fluid index is 16 cm. Morphology is grossly normal. The cervix is long and closed, 4 cm. The placenta is anterior, not associated with the cervical os. The current sonographic age is 30 weeks and 1 day, based on the following measurements: BPD 7.5 cm (30 weeks, 0 days) Head Circumference 27.4 cm (29 weeks, 6 days) Abdominal Circumference 25.5 cm (29 weeks, 5 days) Femur Length 5.9 cm (30 weeks, 6 days) Presentation Cephalic Placenta Anterior Grade I Weight (g) by [id number] % * These measurements result in an estimated date of delivery of March 25, 2022. The current estimated weight is 1510 grams (3 pounds, 5 ounces). IMPRESSION: 1. Single, live intrauterine , current sonographic age of 30 weeks and 1 day, with an estimated date of delivery of March 25, 2022 (prior BENJIE April 01, 2022) 2. Current estimated weight 1510 grams (3 pounds, 5 ounces) * Estimated Weight (g) by Percentile is based upon an accurate estimated age based on last menstrual period. Report reported and signed by Christopher Hoffmann on 01/15/2022 111[address] [facility] [employer] Evaluation note Note Date & Type Note Facility Evaluation note Diagnosis Term - Primary documented in this encounter [facility] [employer] Work Phone: Evaluation note Note Date & Type Note Facility Evaluation note Diagnosis Encounter for supervision of other normal , third trimester- Primary documented in this encounter [facility] Evaluation note Note Date & Type Note Facility Evaluation note Diagnosis Encounter for supervision of other normal , third trimester- Primary documented in this encounter [facility] History of Present illness Narrative Mary Dobson CNM - 12/02/2023 3:30 PM EST Note Date & Type Note Facility History of Present illness Narrative Subjective No chief complaint on file. Chet Robins is a 28 y.o. at 38w2d with a working estimated date of delivery of 12/14/2023, by Last Menstrual Period who presents for a routine visit. She denies vaginal bleeding, leakage of fluid, decreased movements, or contractions. Her is complicated by: threatened early Objective Physical Exam weight: 190 lb Expected Total Weight Gain: 11 lb-19 lb Pregravid BMI: 32.02 BP: 120/80 Urine glucose-negative,protein-negative Assessment/Plan Diagnoses and all orders for this visit: Encounter for supervision of other normal , third trimester Continue vitamin. Labs reviewed. GBS + positive Expected mode of delivery Follow up in 1 week for a routine visit. 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 ACP-Advance Directive ACP-Power of Public Safety Police Latest Code Status on File Code Status Date Activated Date Inactivated Comments Full Code 03/21/2022 6:29 PM Full Code 03/21/2022 6:18 AM 03/21/2022 6:29 PM Full Code 10/27/2018 9:30 PM 10/29/2018 8:11 PM Full Code 10/27/2018 3:34 PM 10/27/2018 9:30 PM Additional Source Comments INFORMATION SOURCE (unrecogn ized section and content) DATE CREATED AUTHOR 04/14/2018 [facility] DATE CREATED AUTHOR AUTHOR'S ORGANIZ ATION 03/02/2022 [facility] DATE CREATED AUTHOR AUTHOR'S ORGANIZ ATION 03/24/2022 [facility] DATE CREATED AUTHOR AUTHOR'S ORGANIZ ATION 11/15/2023 [facility] DATE CREATED AUTHOR AUTHOR'S ORGANIZ ATION 12/28/2023 [facility] Special[facility] EPIC Reason for Visit (unrecogniz ed section and content) Reason Comments Scheduled Induction Scheduled Active and Recently Administ ered Medications (unrecognized section and content) Medication Order 03/20/2022 03/21/2022 03/22/2022 benzocaine-menthol (DERMOPLAST) 20-0.5 % spray Topical, 2 TIMES DAILY, First dose on Thu03/21/22 at 2100, Apply to perineal area. Patient is capable and may self administer at bedside., 2105 (Given - Provider: Jenifer Velasquez RN) 0900 (Due)2100 (Due) measles, mumps & rubella vaccine (MMR) injection 0.5 mL 0.5 mL, SubCUTAneous, PRIOR TO DISCHARGE, 1 dose, Starting on Thu03/21/22 at 1829, Until Discontinued, penicillin G potassium 5 Million Units in dextrose 5 % 100 mL IVPB (mini-bag) (COMPLETED) 5 Million Units, IntraVENous, ONCE, 1 dose, On Thu03/21/22 at 0645, Antimicrobial Indications: GBS Prophylaxis, Labor and Delivery 0743 (New Bag - Provider: Mary Morton, RN)0815 (Stopped - Provider: Mary Morton, RN) penicillin G potassium in d5w IVPB 2.5 Million Units (CANCELED) 2.5 Million Units, IntraVENous, EVERY 4 HOURS, First dose on Thu03/21/22 at 1030, Until Discontinued, Antimicrobial Indications: GBS Prophylaxis, Begin 4 hours after loading dose. Continue until delivery., Labor and Delivery 1209 (New Bag - Provider: Mary Morton RN)1244 (Stopped - Provider: Mary Morton RN)1554 (New Bag - Provider: Mary Morton, RN)1630 (Stopped - Provider: Mary Morton RN) sodium chloride flush 0.9 % injection 5-40 mL 5-40 mL, IntraVENous, EVERY 12 HOURS SCHEDULED (2 times per day), First dose on Thu03/21/22 at 2100, Until Discontinued, For Line Patency: Peripheral IV = 5 mL; Midline or Central Line = 10 mL/lumen. If following IV push medication, administer flush at same rate as the IV push. Flush volume is determined by type of infusion therapy being given. For non-viscous solutions use: Peripheral IV = 5 mL Midline or Central Line = 10 mL/lumen For viscous solutions (i.e. blood components, parenteral nutrition, contrast media, or after obtaining blood sample) use: Peripheral IV = 10 mL Midline or Central Line = 20 mL/lumen, 2100 (Due) 0900 (Due)2100 (Due) rzydwvm-wfhcmb-pvxcp pertussis (BOOSTRIX) injection 0.5 mL 0.5 mL, IntraMUSCular, PRIOR TO DISCHARGE, 1 dose, Starting on Thu03/21/22 at 1829, Until Discontinued, If not previously administered during at 27-36 weeks as recommended by CDC., witch ricci-glycerin (TUCKS) pad Topical, 2 TIMES DAILY, First dose on Thu03/21/22 at 2100, Apply to perineal area. Patient is capable and may self administer at bedside., 2106 (Given - Provider: Jenifer Velasquez RN) 0900 (Due)2100 (Due) Continuous Medication Order 03/20/2022 03/21/2022 03/22/2022 lactated ringers infusion (CANCELED) IntraVENous, at 125 mL/hr, CONTINUOUS, Starting on Thu03/21/22 at 0645, Labor and Delivery 0720 (New Bag - Provider: Mary Morton RN)1423 (Rate/Dose Change - Provider: Mary Morton RN)1530 (New Bag - Provider: Mary Morton RN)1859 (Stopped - Provider: Mary Morton RN) oxytocin (PITOCIN) 30 units in 500 mL infusion (CANCELED) 1 eliezer-units/min (1 mL/hr), IntraVENous, CONTINUOUS, Starting on Thu03/21/22 at 0645, Until Thu03/21/22 at 1829, Begin infusion at 1 eliezer-unit/min (1 eliezer-unit per min = 1 mL per hour) and increase by 2 eliezer-units/min as needed, every 30 minutes, until labor is achieved. Labor is defined as contractions every 2-3 minutes with cervical changes or [place] units (MVU) greater than 200 in a 10-minute window. Maximum infusion rate: 24 eliezer-unit/min. Contact provider if maximum rate does not achieve desired response. Provider may order alternative titration goal or other clinically appropriate goal of titration rate (s). If staff does not increase pitocin at ordered rate, or if pitocin is turned down or off notify provider., Labor and Delivery 0741 (New Bag - Provider: Mary Morton RN)0812 (Rate/Dose Change - Provider: Mary Morton RN)0843 (Rate/Dose Change - Provider: Mary Morton RN)0913 (Rate/Dose Change - Provider: Mary Morton RN)0945 (Rate/Dose Change - Provider: Mary oMrton RN)1015 (Rate/Dose Change - Provider: Mary Morton RN)1045 (Rate/Dose Change - Provider: Mary Morton RN)1115 (Rate/Dose Change - Provider: Mary Morton RN)1145 (Rate/Dose Change - Provider: Mary Morton, RN)1215 (Rate/Dose Change - Provider: Mary Morton, RN)1248 (Rate/Dose Change - Provider: Mary Morton RN)1315 (Rate/Dose Change - Provider: Mary Morton, RN)1352 (Rate/Dose Change - Provider: Mary Morton, RN)1457 (Stopped - Provider: Mary Morton RN)1528 (Rate/Dose Change - Provider: Mary Morton RN)1600 (Rate/Dose Change - Provider: Mary Morton RN)1724 (Rate/Dose Change - Provider: Harper Burt RN) PRN Medication Order 03/20/2022 03/21/2022 03/22/2022 0.9 % sodium chloride infusion IntraVENous, at 5-250 mL/hr, PRN, if patient receiving piggyback infusions and maintenance fluids are not ordered OR KVO fluids to protect IV site / prevent frequent line interruptions/ long duration, Starting on Thu03/21/22 at 182, For piggyback infusion, administer at same rate as piggyback for a total of 25 mL. Enter 25 mL into dose field and piggyback rate into rate field of order. If piggyback is infusing at a rate less than 100 mL/hr, enter 25 mL into dose field and 100 mL/hr into rate field of order. For KVO fluids, enter rate of 20 mL/hr or less into rate field of order., acetaminophen (TYLENOL) tablet 1,000 mg 1,000 mg, Oral, EVERY 8 HOURS PRN, Starting on Thu03/21/22 at 182, Until Discontinued, Other, Pain (1-10), Give in addition to any other pain medication ordered at same time for any pain indication. Maximum dose of acetaminophen is 4000mg from all sources in 24 hours. Alternate ibuprofen and acetaminophen every 4 hours., 0240 (Given - Provid er: Jenifer Velasquez RN) carboprost (HEMABATE) injection 250 mcg 250 mcg, IntraMUSCular, PRN, Starting on Thu03/21/22 at 182, Until Discontinued, bleeding, May repeat every 15 minutes up to a cumulative maximum dose of 1000 mcg, at physician's request., docusate sodium (COLACE) capsule 100 mg 100 mg, Oral, 2 TIMES DAILY PRN, Starting on Thu03/21/22 at 182, Until Discontinued, Constipation, Do not crush or break., ibuprofen (ADVIL;MOTRIN) tablet 800 mg 800 mg, Oral, EVERY 8 HOURS PRN, Starting on Thu03/21/22 at 181, Until Discontinued, Pain Mild (1-3), Do not crush or chew. 2106 (Given - Provider: Jenifer Velasquez RN) 0547 (Given - Provider: Jenifer Velasquez RN) lactated ringers bolus (CANCELED) 1,000 mL, IntraVENous, at 1,935.5 mL/hr, Administer over 31 Minutes, PRN, Give prior to epidural placement. May be repeated if a second epidural/spinal procedure is performed., Starting on Thu03/21/22 at 0617, Labor and Delivery 1317 (Rate/Dose Change - Provider: Mary Morton RN)1341 (New Bag - Provider: Mary Morton RN)1423 (Stopped - Provider: Mary Morton RN - Comment: bolus completed) lansinoh lanolin ointment Topical, PRN, Dry Skin, nipple discomfort, Starting on Thu03/21/22 at 1829, methylergonovine (METHERGINE) injection 200 mcg 200 mcg, IntraMUSCular, PRN, Starting on Thu03/21/22 at 182, Until Discontinued, Bleeding, PRN for post- hemorrhage, if not hypertensive., miSOPROStol (CYTOTEC) tablet 800 mcg 800 mcg, Rectal, PRN, 1 dose, Starting on Thu03/21/22 at 1829, Until Discontinued, Post- Hemorrhage, Notify Physician prior to administration., ondansetron (ZOFRAN-ODT) disintegrating tablet 8 mg 8 mg, Oral, EVERY 8 HOURS PRN, Starting on Thu03/21/22 at 182, Until Discontinued, Nausea, oxytocin (PITOCIN) 30 units in 500 mL infusion (CANCELED) 166 eliezer-units/min (166 mL/hr), IntraVENous, PRN, 1 dose, Starting on Thu03/21/22 at 0617, Until Thu03/21/22 at 182, Bleeding, For Post Use Only. Give after delivery of placenta. Following Bolus from bag administration, reduce the rate to 166 mL/hr and administer remaining bag, Post Delivery 1736 (Rate/Dose Change - Provider: Mary Morton RN)1858 (Stopped - Provider: Mary Morton RN - Comment: infusion complete) rho(D) immune globulin (HYPERRHO S/D) injection 300 mcg 300 mcg, IntraMUSCular, PRN, 1 dose, Starting on Thu03/21/22 at 1829, Until Discontinued, if mom negative and baby positive, sodium chloride flush 0.9 % injection 5-40 mL 5-40 mL, IntraVENous, PRN, Starting on Thu03/21/22 at 1829, Until Discontinued, Line Care, After every IV line use, For Line Patency: Peripheral IV = 5 mL; Midline or Central Line = 10 mL/lumen. If following IV push medication, administer flush at same rate as the IV push. Flush volume is determined by type of infusion therapy being given. For non-viscous solutions use: Peripheral IV = 5 mL Midline or Central Line = 10 mL/lumen For viscous solutions (i.e. blood components, parenteral nutrition, contrast media, or after obtaining blood sample) use: Peripheral IV = 10 mL Midline or Central Line = 20 mL/lumen, Care Teams (unrecognized sec tion and content) Technical Services Librarian Relationship Specialty Start Date End Date Jocelynn Canchola MD [address] [place] [address] [phone] PCP - General Family Medicine 10/26/18 Technical Services Librarian Relationship Specialty Start Date End Date Jocelynn Frankel MD [address] [place] [id number] PCP - General Family Medicine 02/24/23 Technical Services Librarian Relationship Specialty Start Date End Date Jocelynn Frankel MD [address] [place] [address] [phone] PCP - General Family Medicine 02/24/23 Technical Services Librarian Relationship Specialty Start Date End Date Jocelynn Frankel MD [address] [place] [address] [phone] PCP - General Family Medicine 02/24/23 FOR RECORDS PERTAINING TO PATIENTS WHO ARE OR HAVE BEEN ENROLLED IN A CHEMICAL DEPENDENCY/SUBSTANCEABUSE PROGRAM, SOME INFORMATION MAY BE OMITTED. This clinical summary was aggregated from multiple sources. Caution should be exercised in using it in the provision of clinical care. This summary normalizes information from multiple sources, and as a consequence, information in this document may materially change the coding, format and clinical context of patient data. In addition, data may be omitted in some cases. CLINICAL DECISIONS SHOULD BE BASED ON THE PRIMARY CLINICAL RECORDS. [employer] [facility]. provides no warranty or guarantee of the accuracy or completeness of information in this document.
--- NOTE | 2024-01-05 09:53 | PC.NURSE ---
Klaudia and 4 week old Jesus arrive for support. Klaudia states she has always spit up after feeds but the last week has been so much worse noted to be sleeping in car seat, color pink. Noticed to have coughing episode, nasal congestion noted with raspy cough. No fever reported by mom, symptoms getting worse over last 5 days. seen by PCP 01/04/2024. Mom voiced concern that has decreased amount taken at each feed. Mom pumps and bottle feeds during the day and breast feeds at night. usually takes 3 oz of pumped milk every 3 hours and nurses 20 min each side during the night feeds. Baby currently taking 2 oz, and usually has mod to large emesis of milk after feeds. [employer] referred and Mom to for evaluation of possible tongue tie. Infant noted to have long tongue that extends past lower lip. No heart shape to tongue and moves freely. Able to move left and right laterally, and raise to palate easily. Slight frenulum noted, but does not appear to interfere with tongue movement and feeding. Mom asking questions about nasal congestion and relief measures. Discussed cool mist vaporizer, infant nasal saline spray. Handout on slow paced bottle feeding, to slow flow of feed to as baby may need while congested. Also encouraged to bring infant to ED if symptoms increase, stops feeding or further decreases amount taken, becomes lethargic or difficulty breathing with color changes. Mom aware and voices understanding. Leaves ambulatory with , will return 01/13/2024 for further support.
== END 2024-01-05 10:23 | disposition home or self-care (01) ==
LOC: FBCO 08:14
PROVIDERS: PCP Family Medicine; Visit Provider Midwife
DX: Z39.1 Encounter for care and examination of lactating mother (principal)
CPT/HCPCS: G0463

== ENCOUNTER 2024-01-13 08:25 | Outpatient (OUT) | payer BC, SELFPAY ==
--- OUTSIDE RECORDS SUMMARY | 2024-01-13 08:27 | XMS_ITS | CCD ---
Author Organization [facility] Care Team Providers Care Cake Winder Name Role Phone GAVIN CHRISTIAN Unavailable Unavailable [...] Unavailable FLORO, MARY Primary Care Unavailable FLORO, MAYR Admitting Unavailable FLORO, MARY Attending Unavailable FLORO, [...] (1 source) MITE EXTRACT Drug Allergy 9 [facility] (1 source) MITE EXTRACT; Translations: [...] 03-21-2022 ondansetron (ZOFRAN-ODT) disintegrating tablet 8 mg WVZODO-J8-X9-Q16-H0-G A PO (1 source) take 1 tablet by mouth once daily YTTIRF-O2-J5-B12-D3- FA PO Take 1 tablet by mouth daily 0 Active WQHJEN-A9-X7-V69-E4-M ETHYLF-FA PO (5 sources) take 1 tablet by mouth in the morning RJTFPZ-E8-G7-B12-D3- METHYLF-FA PO Take 1 tablet by mouth [...] 11-12-2023 Bilirubin Ql (U) Negative Normal NEG [facility] Comment on above: Performed By: #### U A #### [facility] ([id number]) [address] [place] [address] BLOOD/HGB MODERATE Abnormal NEG [facility] Comment on above: Performed By: #### U A #### [facility] ([id number]) [address] [place] [address] Color (U) YELLOW Normal YELLOW [facility] Comment on above: Performed By: #### U A #### [facility] ([id number]) [address] [place] [address], [place] [address] Glucose Ql (U) Negative Normal NEG [facility] Comment on above: Performed By: #### U A #### [facility] ([id number]) [address] [place] [address], [place] [address] Ketones Ql (U) Negative Normal NEG [facility] Comment on above: Performed By: #### U A #### [facility] ([id number]) [address] [place] [address], [place] [address] Leukocyte esterase Test strip Ql (U) SMALL Abnormal NEG [facility] Comment on above: Performed By: #### U A #### [facility] ([id number]) [address] [place] [address] [place] [address] Nitrite Ql (U) Negative Normal NEG [facility] Comment on above: Performed By: #### U A #### [facility] ([id number]) [address] [place] [address], [place] [address] pH (U) 6.5 [pH] Normal 5.0-8.5 [facility] Comment on above: Performed By: #### U A #### [facility] ([id number]) [address] [place] [address], [place] [address] Protein Ql (U) Negative Normal NEG [facility] Comment on above: Performed By: #### U A #### [facility] ([id number]) [address] [place] [address], [place] [address] R.B.CELLS 10 to 20 Normal 0-5 [facility] Comment on above: Performed By: #### U A #### [facility] ([id number]) [address] [place] [address], [place] [address] Specific gravity (U) [Rel density] 1.015 Normal 1.003-1.035 [facility] Comment on above: Performed By: #### U A #### [facility] ([id number]) [address] [place] [address] SQUAMOUS EPITHELIUM 10 to 20 Normal 0-5 [facility] Comment on above: Performed By: #### U A #### [facility] ([id number]) [address] [place] [address] TURBIDITY CLEAR Normal CLEAR [facility] Comment on above: Performed By: #### U A #### [facility] ([id number]) [address] [place] [address] Urobilinogen Qn (U) 1.0 {Brian'U}/dL Normal <1.1 [facility] Comment on above: Performed By: #### U A #### [facility] ([id number]) [address] [place] [address] W.B.CELLS 5 to 10 Normal 0-5 [facility] Comment on above: Performed By: #### U A #### [facility] ([id number]) [address] [place] [address] 1988[address] SARS/FLU A+B/RSV by NAAT/Mol ecularon 11-07-2023 SARS/FLU [...] operators who are performing tests using either [employer] or [employer] systems and is limited to laboratories that [...] repeat. Fact Sheet for Healthcare Providers: https://www.fda.gov/ media/111943/downloa d Fact Sheet for Patients: https://www.fda.gov/ media/024869/downloa d [facility] Comment on above: Performed By: #### C OVFLR #### [facility] ([id number]) [address] [place] [address], [place] [address] XR CHEST 2 VWSon 11-07-2023 XR CHEST 2 VWS XR CHEST 2 VWS PA and lateral chest: HISTORY: Cough. 2 views of the chest are obtained. Cardiac and mediastinal contours are within normal limits. Lungs are clear. There is no vascular congestion or effusion. Osseous structures appear intact. IMPRESSION: No acute findings. Finalized by Trip Perea MD on 11/07/2023 10:56 AM [facility] US OB FOLLOW UP TRANSABDOMIN AL [...] Normal Not Available ABO/RHon 03-22-2022 ABO/Rh Positive [facility] ABO/Rh(D)on 03-22-2022 ABO/Rh(D) Positive [facility] Comment on above: Performed By: #### A BRH #### [facility] [address] [place] [address] Contact Center Analyst: Phil Rivera MD TYPE AND SCREENon 03-22-2022 ABO/Rh Positive [facility] Arm Band Number [id number] [facility] Expiration Date 03/24/2022,2359 [facility] Type + Screenon 03-22-2022 Type + Screen Sample Expiration 03/24/2022,2359 Arm Band Number [id number] ABO/Rh(D) B POSITIVE Antibody Screen NEGATIVE [facility] Comment on above: Performed By: #### T YS #### [facility] [address] [place] [address] Contact Center Analyst: Phil Rivera MD CBC auto differentialon Absolute Eos # 0.17 [facility] Absolute Immature Granulocyte 0.07 [facility] Absolute Lymph # 1.68 [facility] Absolute [place] # 0.83 [facility] Basophils (Bld) [#/Vol] 10*3/uL [facility] Basophils/100 WBC (Bld) 0 % 0 - 2 % [facility] Eosinophils/100 WBC (Bld) 2 % 1 - 4 % [facility] Hematocrit (Bld) [Volume fraction] 33.0 % Low 36.3 - 47.1 % [facility] Hemoglobin (Bld) [Mass/Vol] 11.1 g/dL Low 11.9 - 15.1 g/dL [facility] Immature granulocytes/100 WBC (Bld) 1 % High 0 [facility] Interpretation and review of laboratory results Abnormal [facility] Lymphocytes/100 WBC (Bld) 19 % Low 24 - 43 % [facility] MCH (RBC) [Entitic mass] 31.1 pg 25.2 - 33.5 pg [facility] MCHC (RBC) [Mass/Vol] 33.6 g/dL 28.4 - 34.8 g/dL [facility] MCV (RBC) [Entitic vol] 92.4 fL 82.6 - 102.9 fL [facility] Monocytes/100 WBC (Bld) 10 % 3 - 12 % [facility] NRBC Automated 0.0 0.0 per 100 WBC [facility] Platelet distribution width (Bld) [Ratio] 12.5 % 11.8 - 14.4 % [facility] Platelet mean volume (Bld) [Entitic vol] 11.0 fL 8.1 - 13.5 fL [facility] Platelets (Bld) [#/Vol] 171 10*3/uL [facility] RBC (Bld) [#/Vol] 3.57 10*6/uL Low 3.95 - 5.1 1 m/uL [facility] Segmented neutrophils/100 WBC (Bld) 68 % High 36 - 65 % [facility] Segs Absolute 5.93 [facility] WBC (Bld) [#/Vol] 8.7 10*3/uL [facility] CBC with Diffon 03-21-2022 Abs. Basophil <0.03 Normal 0.00-0.20 [facility] Comment on above: Performed By: #### C DP #### [facility] [address] [place] [address] Dr[place], [facility]83 Contact Center Analyst: Phil Rivera MD Abs.Imm.Granulocyte 0.07 k/uL Normal 0.00-0.30 [facility] Comment on above: Performed By: #### C DP #### [address] [place], [facility]83 Contact Center Analyst: Phil Rivera MD Abs.Neutrophil (Seg) 5.93 k/uL Normal 1.50-8.10 [facility] Comment on above: Performed By: #### C DP #### [address] [place], [facility]83 Contact Center Analyst: Phil Rivera MD Basophils/100 WBC (Bld) 0 % Normal 0-2 [facility] Comment on above: Performed By: #### C DP #### [address] [place], [facility]83 Contact Center Analyst: Phil Rivera MD Eosinophils (Bld) [#/Vol] 0.17 10*3/uL Normal 0.00-0.44 [facility] Comment on above: Performed By: #### C DP #### [address] [place], [place] [address] Contact Center Analyst: Phil Rivera MD Eosinophils/100 WBC (Bld) 2 % Normal 1-4 [facility] Comment on above: Performed By: #### C DP #### [address] [place], [facility]83 Contact Center Analyst: Phil Rivera MD Erythrocyte distribution width (RBC) [Ratio] 12.5 % Normal 11.8-14.4 [facility] Comment on above: Performed By: #### C DP #### [address] [place] [facility]83 Contact Center Analyst: Phil Rivera MD Hematocrit (Bld) [Volume fraction] 33.0 % Low 36.3-47.1 [facility] Comment on above: Performed By: #### C DP #### [facility] [address] [place] [address] [place] [address] Contact Center Analyst: Phil Rivera MD Hemoglobin (Bld) [Mass/Vol] 11.1 g/dL Low 11.9-15.1 [facility] Comment on above: Performed By: #### C DP #### [facility] [address] [place] [address] [place] [address] Contact Center Analyst: Phil Rivera MD Immature granulocytes/100 WBC (Bld) 1 % High 0 [facility] Comment on above: Performed By: #### C DP #### [facility] [address] [place] [address] [place] [address] Contact Center Analyst: Phil Rivera MD Lymphocytes (Bld) [#/Vol] 1.68 10*3/uL Normal 1.10-3.70 [facility] Comment on above: Performed By: #### C DP #### [facility] [address] [place] [address] [place] [address] Contact Center Analyst: Phil Rivera MD Lymphocytes/100 WBC (Bld) 19 % Low 24-43 [facility] Comment on above: Performed By: #### C DP #### [facility] [address] [place] [address] Dr[place], [facility]83 Contact Center Analyst: Phil Rivera MD MCH (RBC) [Entitic mass] 31.1 pg Normal 25.2-33.5 [facility] Comment on above: Performed By: #### C DP #### [facility] [address] [place] [address] [place] [address] Contact Center Analyst: Phil Rivera MD MCHC (RBC) [Mass/Vol] 33.6 g/dL Normal 28.4-34.8 [facility] Comment on above: Performed By: #### C DP #### [facility] [address] [place], [place] 9846183 Contact Center Analyst: Phil Rivera MD MCV (RBC) [Entitic vol] 92.4 fL Normal 82.6-102.9 [facility] Comment on above: Performed By: #### C DP #### [facility] [address] [place] [facility]83 Contact Center Analyst: Phil Rivera MD Monocytes (Bld) [#/Vol] 0.83 10*3/uL Normal 0.10-1.20 [facility] Comment on above: Performed By: #### C DP #### [address] [place], [facility]83 Contact Center Analyst: Phil Rivera MD Monocytes/100 WBC (Bld) 10 % Normal 3-12 [facility] Comment on above: Performed By: #### C DP #### [facility] [address] [place] [address] Dr[place], [facility]83 Contact Center Analyst: Phil Rivera MD Neutrophil (Seg) 68 % High 36-65 [facility] Comment on above: Performed By: #### C DP #### [facility] [address] [place] [address] [facility]83 Contact Center Analyst: Phil Rivera MD NRBC Automated 0.0 per 100 WBC Normal 0.0 [facility] Comment on above: Performed By: #### C DP #### [facility] [address] [place] [id number] Contact Center Analyst: Phil Rivera MD Platelet mean volume (Bld) [Entitic vol] 11.0 fL Normal 8.1-13.5 [facility] Comment on above: Performed By: #### C DP #### [facility] [address] [place] [address] [facility]83 Contact Center Analyst: Phil Rivera MD Platelets (d) [#/Vol] 171 10*3/uL Normal 138-453 [facility] Comment on above: Performed By: #### C DP #### [facility] [address] [place], [place] [address]83 Contact Center Analyst: Phil Rivera MD RBC (d) [#/Vol] 3.57 10*6/uL Low 3.95-5.11 [facility] Comment on above: Performed By: #### C DP #### [facility] [address] [place], [place] 0572783 Contact Center Analyst: Phil Rivera MD WBC (d) [#/Vol] 8.7 10*3/uL Normal 3.5-11.3 [facility] Comment on above: Performed By: #### C DP #### [facility] [address] [place], [place] 1864383 Contact Center Analyst: Phil Rivera MD DRUG SCREEN MULTI URINEon Amphetamine Screen, Ur Negative NEGATIVE [facility] Barbiturate Screen, Ur Negative NEGATIVE [facility] Benzodiazepine Screen, Urine Negative NEGATIVE [facility] Buprenorphine Urine Negative NEGATIVE [facility] Cannabinoid Scrn, Ur Negative NEGATIVE [facility] Cocaine Metabolite, Urine Negative NEGATIVE [facility] Methadone Screen, Urine Negative NEGATIVE [facility] Methamphetamine, Urine Negative NEGATIVE [facility] Opiates, Urine Negative NEGATIVE [facility] Oxycodone Screen, Ur Negative NEGATIVE [facility] Phencyclidine, Urine Negative NEGATIVE [facility] Propoxyphene, Urine Negative NEGATIVE [facility] Tricyclic Antidepressants, Urine Negative NEGATIVE [facility] Comment on above: Drug screen results are to be used for medical purposes only. All positive results are unconfirmed. Testing for employment or legal uses should be sent to a reference laboratory for confirmation. [facility] Drug Scr, Abuse, Uron 2021 Amphetamine(s),Ur Negative Normal NEG [facility] Comment on above: Performed By: #### D AU #### [facility] [address] [place], [place] 00[address]8583 Contact Center Analyst: Phil Rivera MD Barbiturate(s),Ur Negative Normal NEG [facility] Comment on above: Performed By: #### D AU #### [facility] [address] [place], [place] 411[address] Contact Center Analyst: Phil Rivera MD Benzodiazepine(s) Negative Normal NEG [facility] Comment on above: Performed By: #### D AU #### [facility] [address] [place], [place] 6696283 Contact Center Analyst: Phil Rivera MD Buprenorphrine, Ur Negative Normal [facility] Comment on above: Performed By: #### D AU #### [facility] [address] [place], [place] 5245383 Contact Center Analyst: Phil Rivera MD Cannabinoid(s),Ur Negative Normal NEG [facility] Comment on above: Performed By: #### D AU #### [address] [place], [place] 5994183 Contact Center Analyst: Phil Rivera MD Cocaine Metabolite Negative Normal [facility] Comment on above: Performed By: #### D AU #### [facility] [address] [place] [address] Contact Center Analyst: Phil Rivera MD Methadone Ql (U) Negative Normal NEG [facility] Comment on above: Performed By: #### D AU #### [facility] [address] [place], [place] [id number] Contact Center Analyst: Phil Rivera MD Methamphetamine, Ur Negative Normal [facility] Comment on above: Performed By: #### D AU #### [facility] [address] [place], [place] 2931383 Contact Center Analyst: Phil Rivera MD Opiate(s), Ur Negative Normal NEG [facility] Comment on above: Performed By: #### D AU #### [facility] [address] [place] [address] Dr[place], [place] 0177183 Contact Center Analyst: Phil Rivera MD Oxycodone, Urine Negative Normal NEG [facility] Comment on above: Performed By: #### D AU #### [facility] [address] [place] [address] [place], [place] 5165083 Contact Center Analyst: Phil Rivera MD Phencyclidine, Ur Negative Normal NEG [facility] Comment on above: Performed By: #### D AU #### [facility] [address] [place] [address] [place], [place] 1046783 Contact Center Analyst: Phil Rivera MD Propoxyphene,Urine Negative Normal NEG [facility] Comment on above: Performed By: #### D AU #### [facility] [address] [place] [address] Dr[place], [place] 0346483 Contact Center Analyst: Phil Rivera MD Tricyclic antidepressants Screen Ql (U) Negative Normal [facility] Comment on above: Result Comment: Drug screen results are to be used for medical purposes only. All positive results are unconfirmed. Testing for employment or legal uses should be sent to a reference laboratory for confirmation. Performed By: #### D AU #### [facility] [address] [place] [address] Dr[place], [place] 3443583 Contact Center Analyst: Phil Rivera MD GBS, External Resulton 02-27 GBS, External Result Positive [facility] Work Phone: [facility] [employer] Phone: Q - STREPTOCOCCUS,GROUP B CU LTUREon 02-27-2022 STREPTOCOCCUS, GROUP B CULTURE SEE NOTE Abnormal [facility] Comment on above: Order Comment: [facility] performed at: [place], [employer] [facility], [address], [address] [place] [address], [address] [place] [address], Machinist Bench: Josiah Draper MD [facility] Date/Time: [facility] Results Received Date/Time: [facility] Reported Date/Time: Result Comment: STRE PTOCOCCUS, GROUP B CULTURE Micro Number: [id number] Test Status: Final Specimen Source: Vaginal/anorectal Specimen [...] 5 827W #### [facility] Default [address] [place] [address] Q - CBC W/DIFF AND PLTon BASOABS 32 cells/uL Normal 0-200 [facility] Comment on above: Order Comment: [facility] performed at: [employer] [facility], [address], [address] [place] [address], [address] [place] [address], Machinist Bench: Josiah Draper MD [facility] Date/Time: [facility] Results Received Date/Time: [facility] Reported Date/Time: Performed By: #### 1 5040E, 42A #### [facility] Default [address] [place] [address] Basophils/100 WBC (Bld) 0.5 % Normal N [facility] Comment on above: Order Comment: [facility] performed at: [place], [employer] [facility], [address], [address] [place] [address], [address] [place] [address], Machinist Bench: Josiah Draper MD [facility] Date/Time: [facility] Results Received Date/Time: [facility] Reported Date/Time: Performed By: #### 1 5040E, 42A #### [facility] Default [address] [place] [address] EOSABS 82 cells/uL Normal 15-500 [facility] Comment on above: Order Comment: [facility] performed at: [employer] [facility], [address] [place] [address], [address] [place] [address], [address] [place] [address], Machinist Bench: Josiah Draper MD [facility] Date/Time: [facility] Results Received Date/Time: [facility] Reported Date/Time: Performed By: #### 1 [id number], 42A #### [facility] Default [address] [place] [address] Eosinophils/100 WBC (Bld) 1.3 % Normal [facility] Comment on above: Order Comment: [facility] performed at: [employer], [employer] [facility], [address] [place] [address], [address] [place] [address], [address] [place] [address], Machinist [employer]: Josiah Draper MD [facility] Date/Time: [facility] Results Received Date/Time: [facility] Reported Date/Time: Performed By: #### 1 [id number], 42A #### [facility] Default [address] [place] [address] Erythrocyte distribution width (RBC) [Ratio] 12.4 % Normal 11.0-15.0 [facility] Comment on above: Order Comment: [facility] performed at: [employer], [employer] [facility], [address] [place] [address], [address] [place] [address], [address] [place] [address], Machinist Bench: Josiah Draper MD [facility] Date/Time: [facility] Results Received Date/Time: [facility] Reported Date/Time: Performed By: #### 1 [id number], 42A #### [facility] Default [address] [place] [address] Hematocrit (Bld) [Volume fraction] 33.6 % Low 35.0-45.0 [facility] Comment on above: Order Comment: [facility] performed at: [employer] [employer] [facility], [address] [place] [address], [address] [place] [address], [address] [place] [address], Machinist [employer]: Josiah Draper MD [facility] Date/Time: [facility] Results Received Date/Time: [facility] Reported Date/Time: Performed By: #### 1 5040E, 42A #### [facility] Default [address] [place] [address] Hemoglobin (Bld) [Mass/Vol] 11.2 g/dL Low 11.7-15.5 [facility] Comment on above: Order Comment: [facility] performed at: [employer], [employer] [facility], [address] [place] [address], [address] [place] [address], [address] [place] [address], Machinist [employer]: Josiah Draper MD [facility] Date/Time: [facility] Results Received Date/Time: [facility] Reported Date/Time: Performed By: #### 1 5040E, 42A #### [facility] [address] [place] [address] Lymphocytes (Bld) [#/Vol] 1.424 10*3/uL Normal 850-3900 [facility] Comment on above: Order Comment: [facility] performed at: [place] [employer] [facility], [address] [facility], [address] [place] [address], [address] [place] [address], Machinist Bench: Josiah Draper MD [facility] Date/Time: [facility] Results Received Date/Time: [facility] Reported Date/Time: Performed By: #### 1 5040E, 42A #### [facility] Default [address] [place] [address] Lymphocytes/100 WBC (Bld) 22.6 % Normal [facility] Comment on above: Order Comment: [facility] performed at: [employer] [employer] [facility], [address] [place] [address], [address] [place] [address], Machinist Bench: Josiah Draper MD [facility] Date/Time: [facility] Results Received Date/Time: [facility] Reported Date/Time: Performed By: #### 1 5040E, 42A #### [facility] Default [address] [place] [address] MCH (RBC) [Entitic mass] 32.3 pg Normal 27.0-33.0 [facility] Comment on above: Order Comment: [facility] performed at: [employer] [employer] [facility], [address] [place] [address], [address] [place] [address], [address] [place] [address], Machinist Bench: Josiah Draper MD [facility] Date/Time: [facility] Results Received Date/Time: [facility] Reported Date/Time: Performed By: #### 1 5040E, 42A #### [facility] Default [address] [place] [address] MCHC (RBC) [Mass/Vol] 33.3 g/dL Normal 32.0-36.0 [facility] Specialist Comment on above: Order Comment: [facility] Testing performed at: [place] [employer] [facility], [address] [place] [address], [address] [place] [address], Machinist Bench: Josiah Draper MD [facility] Collection Date/Time: [facility] Results Received Date/Time: [facility] Reported Date/Time: Performed By: #### 1 5040E, 42A #### [facility] Default [address] [place] [address] MCV (RBC) [Entitic vol] 96.8 fL Normal 80.0-100.0 [facility] Comment on above: Order Comment: [facility] Testing performed at: [place] [facility], [address] [place] [address], [address] [place] [address], Machinist Bench: Josiah Draper MD [facility] Collection Date/Time: [facility] Results Received Date/Time: [facility] Reported Date/Time: Performed By: #### 1 5040E, 42A #### [facility] Default [address] [place] [address] MONOABS 567 cells/uL Normal 200-950 [facility] Comment on above: Order Comment: [facility] performed at: [place] [facility], [address] [facility], [address] [place] [address], [address] [place] [address], Machinist Bench: Josiah Draper MD [facility] Collection Date/Time: [facility] Results Received Date/Time: [facility] Reported Date/Time: Performed By: #### 1 5040E, 42A #### [facility] Default [address] [place] [address] Monocytes/100 WBC (Bld) 9.0 % Normal [facility] Comment on above: Order Comment: [facility] Testing performed at: [employer] [facility], [address] [place] [address], [address] [place] [address], [address] [place] [address], Machinist Bench: Josiah Draper MD [facility] Collection Date/Time: [facility] Results Received Date/Time: [facility] Reported Date/Time: Performed By: #### 1 504, 42A #### [facility] Default [address] [place] [address] Neutrophils (Bld) [#/Vol] 4.196 10*3/uL Normal 6630-6353 [facility] Comment on above: Order Comment: [facility] Testing performed at: [employer] [facility], [address] , [address] [place] [address], [address] [place] [address], Machinist Bench: Josiah Draper MD [facility] Collection Date/Time: [facility] Results Received Date/Time: [facility] Reported Date/Time: Performed By: #### 1 5040E, 42A #### [facility] Default [address] [place] [address] Neutrophils/100 WBC (Bld) 66.6 % Normal [facility] Comment on above: Order Comment: [facility] Testing performed at: [place] [facility], [address] , [address] [place] [address], [address] [place] [address], Machinist Bench: Josiah Draper MD [facility] Collection Date/Time: [facility] Results Received Date/Time: [facility] Reported Date/Time: Performed By: #### 1 5040E, 42A #### [facility] Default [address] [place] [address] Platelet mean volume (Bld) [Entitic vol] 10.1 fL Normal 7.5-12.5 [facility] Comment on above: Order Comment: [facility] performed at: [place] [facility], [address] [facility], [address] [place] [address], [address] [place] [address], Machinist Bench: Josiah Draper MD [facility] Collection Date/Time: [facility] Results Received Date/Time: [facility] Reported Date/Time: Performed By: #### 1 5040E, 42A #### [facility] Default [address] [place] [address] Platelets (Bld) [#/Vol] 192 10*3/uL Normal 140-400 [facility] Specialist Comment on above: Order Comment: [facility] Testing performed at: [place] [facility], [address] , [address] [place] [address], [address] [place] [address], Machinist Bench: Josiah Draper MD [facility] Collection Date/Time: [facility] Results Received Date/Time: [facility] Reported Date/Time: Performed By: #### 1 5040E, 42A #### [facility] Default [address] [place] [address] RBC (Bld) [#/Vol] 3.47 10*6/uL Low 3.80-5.10 [facility] Comment on above: Order Comment: [facility] Testing performed at: [place] [facility], [address] , [address] [place] [address], [address] [place] [address], Machinist Bench: Josiah Draper MD [facility] Collection Date/Time: [facility] Results Received Date/Time: [facility] Reported Date/Time: Performed By: #### 1 Makayla, 42A #### [facility] Default [address] [place] [address] WBC (Bld) [#/Vol] 6.3 10*3/uL Normal 3.8-10.8 Sebastian eli [place] [facility] Comment on above: Order Comment: [facility] performed at: [place] [facility], [address] [facility], [address] [place] [address], [phone], Machinist Bench: Josiah Draper MD [facility] Collection Date/Time: [facility] Results Received Date/Time: [facility] Reported Date/Time: Performed By: #### 1 504Marie, 42A #### [facility] Default [address] [place] [address] Q - GLUCOSE,GESTATIONAL SCRE EN(50G)-135 CUTOFFon 01-01-2022 Glucose [Mass/Vol] 60 mg/dL Low <135 Sebastian rn [place] [facility] Comment on above: Order Comment: [facility] performed at: [place] [facility], [address] [facility], [address] [place] [address], [phone], Machinist Bench: Josiah Draper MD [facility] Collection Date/Time: [facility] Results Received Date/Time: [facility] Reported Date/Time: Performed By: #### 1 5040E, 42A #### [facility] Default [address] [place] [address] US OB 2nd/3rd Trimesteron US OB 2nd/3rd [...] 4.2 cm (18 weeks, 5 days) Head Hodbmppsruvzb49.3 cm (19 weeks, 0 days) Abdominal Pxtdbadkvfndc04.9 cm (19 weeks, 2 days) Femur Length [...] by Christopher Hoffmann on 11/06/2021 0958 Normal [facility] ABO, External Resulton 08-27 ABO, External Result B [facility] Phone: C. Trachomatis, External Res [facility] 08-27-2021 C. Trachomatis, External Result Not detected [facility] Phone: HIV, External Resulton 08-27 HIV, External Result Non-Reactive TAB [employer] Phone: Hepatitis B, External Result on 08-27-2021 Hep B, External Result HBSAG non reactive [facility] Phone: N. Gonorrhoeae, External Res [facility] 08-27-2021 N. Gonorrhoeae, External Result Not detected [facility] Phone: No Panel Informationon 08-27 ABO, External Result Positive [facility] Phone: [facility] Phone: No Panel InformationOrdered By: Mary Morton on 08-27-2021 Rh Factor, External Result Positive [facility] RPR, External Labon 08-27-20 21 RPR, External Result Non-Reactive TAB [facility] Work Phone: Rubella Titer, External Resu lton 08-27-2021 Rubella Titer, External Result immune [facility] Work Phone: XR ANKLE RT MIN 3 VIEWSon XR ANKLE RT MIN [address] [place] [phone] Patient: CHET ROBINS Exam Date: 05/04/2017DOB: 1995 Gender:F : DR PEDRO SUH . Admission #: [id number] : DR JOCELYNN FRANKEL M.D. Order #: [id number] HERE TO VIEW EXAM RADIOLOGY REPORT PROCEDURE: [...] Christian M.D. on 05/04/2017 at 10:34 Normal [facility] Vital Signs Date Time Vital Sign Value Performing Clinician Facility 12-02-2023 14:52-0500 Body mass index (BMI) [Ratio] 34.2 kg/m2 Mary [place] [employer] [facility] Work Phone: [facility] 12-02-2023 14:52-0500 Body weight 86.18 kg Mary [place] [employer] Work Phone: [facility] 12-02-2023 14:52-0500 Diastolic blood pressure 80 mm[Hg] Mary Dobson [employer] Work Phone: [facility] 12-02-2023 14:52-0500 Systolic blood pressure 120 mm[Hg] Mary Dobson CNM Work Phone: [facility] 11-24-2023 15:23-0500 Body mass index (BMI) [Ratio] 34.2 kg/m2 Mary Dobson CNM Work Phone: [facility] 11-24-2023 15:23-0500 Body weight 86.18 kg Mary GONZALEZM Work Phone: [facility] 11-24-2023 15:23-0500 Diastolic blood pressure 70 mm[Hg] Mary GONZALEZM Work Phone: [facility] 11-24-2023 15:23-0500 Systolic blood pressure 110 mm[Hg] Mary GONZALEZM Work Phone: [facility] 03-22-2022 16:43-0400 Body temperature 97.39 [degF] Mary Dobson APRN - CNM Work Phone: [facility] 03-22-2022 16:43-0400 Diastolic blood pressure 77 mm[Hg] Mary Dobson APRN - CNM Work Phone: [employer] [facility] [facility] 03-22-2022 16:43-0400 Heart rate 80 /min Mary Dobson APRN - CNM Work Phone: [facility] 03-22-2022 16:43-0400 Respiratory rate 16 /min Mary Dobson APRN - CNM Work Phone: [facility] 03-22-2022 16:43-0400 Systolic blood pressure 131 mm[Hg] Mary Dobson APRN - CNM Work Phone: [facility] 03-21-2022 17:11-0400 SaO2% (BldA) [Mass fraction] 100 % Mary Dobson APRN - CNM Work Phone: [facility] 03-21-2022 07:55-0400 Body height 167.6 cm Mary Dobson APRN - CNM Work Phone: [facility] 03-21-2022 07:55-0400 Body mass index (BMI) [Ratio] 31.47 kg/m2 Mary Edgeo TECHNICAL ARTIST - CNM Work Phone: [facility] 03-21-2022 07:55-0400 Body weight 88.45 kg Mary Dobson TECHNICAL ARTIST - CNM Work Phone: [facility] Encounters Encounter Date Encounter Type [...] Start: 11-12-2023 End: 11-12-2023 ambulatory MARY FLORO [facility] Start: 11-07-2023 End: 11-08-2023 ambulatory JOSE G Jade JAY [facility] Start: 11-07-2023 End: 11-07-2023 ambulatory JOSE G Jade JAY [facility] Start: 10-29-2023 End: 10-30-2023 ambulatory MARY DOBSON Not Available Start: 10-07-2023 End: 10-08-2023 ambulatory MARY EDGEO Not Available Start: 09-07-2023 End: 09-08-2023 ambulatory MARY EDGEO Not Available Start: 03-21-2022 End: 03-22-2022 Evaluation and management of inpatient [facility] Start: 03-21-2022 End: 03-22-2022 Evaluation and management of inpatient Mary Dobson TECHNICAL ARTIST - CNM Work Phone: [facility] Start: 05-04-2017 End: 05-04-2017 Ambulatory GAVIN CHRISTIAN Facility: Procedures Date Procedure Procedure Detail Performing Clinician Start: 03-22-2022 Blood typing serolog ic abo Silke P Hotelling TECHNICAL ARTIST - CNM Work Phone: Start: 03-22-2022 Antibody screen Mary Dobson TECHNICAL ARTIST - CNM Work Phone: Start: 03-21-2022 Blood count complete auto&auto difrntl wbc Mary Dobson TECHNICAL ARTIST - CNM Work Phone: Start: 03-21-2022 Blood typing serolog ic abo Silke P Hotelling TECHNICAL ARTIST - CNM Work Phone: Start: 02-27-2022 GBS, [...] AM EST Routine [facility] [address] [place] [address] Mary Dobson CNM [address] [place], [place] [id number] [facility] Start: 12-02-2023 End: 12-02-2023 Patient encounter procedure [facility] Comment on above: Arrived Start: 06-19-2023 Influenza vaccination Influenza Vacc ine (#1) [facility] Start: 07-08-2022 DTaP/Tdap/Td vaccine (7 - Tdap) DTaP/Tdap/Td vaccine (7 - Tdap) [facility] Start: 06-19-2022 Influenza vaccination Flu vacc ine (Season Ended) [facility] [employer] [facility] Start: 03-25-2019 Screening for Chlamy jesica trachomatis Chlamydia screen [facility] Start: 2017 Screening for malign ant neoplasm of cervix Pap smear [facility] Start: 2014 Hepatitis C screening Hepatitis C sc reen [facility] Start: 2008 Depression Screen Depression Screen [facility] Start: 2007 HPV vaccine (1 - 2-d ose series) HPV vaccine (1 - 2-dose series) [employer] [facility] [employer] Start: 2001 COVID-19 Vaccine (1) COVID-19 Vaccin e (1) [employer] [facility] Start: 1997 Varicella vaccine (1 of 2 - 2-dose childhood series) Varicella vaccine (1 of 2 - 2-dose childhood series) [facility] End: 03-21-2022 RHOGAM RHOGAM Blood Bank Routine One Time for 1 Occurrences starting 03/21/2022 until 03/21/2022 [employer] Work Phone: Comment on above: One Time for 1 Occur rences starting 03/21/2022 until 03/21/2022 Immunizations Immunization Date Immunization Notes Care Provider Vidhi bynum 03-21-2022 diphtheria, tetanus toxoids and acellular pertussis vaccine, unspecified formulation Mary Dobson Ludei Work Phone: [employer] Work Phone: 03-21-2022 measles, mumps and rubella virus vaccine Maryjared Dobson Ludei Work Phone: [employer] Work Phone: Payers Date Payer Category Payer Unknown BCBS BCBS [id number] 2022-Present [phone] [address] [place] [address] [id number] 2022 Unknown [id number] 2018 Medicaid [id number] 1996 Unknown [id number] [id number] 73 1996 Unknown [id number] 2.16.840.1.574810.3.579.2.1 286 1996 Unknown [id number] 2.16.840.1.222969.3.579.2.1 286 1996 Unknown [id number] 2.16.840.1.681006.3.579.2.1 286 1996 Unknown [id number] 2.16.840.1.995010.3.579.2.1 259 1996 Unknown [id number] 2.16.840.1.297294.3.579.2.1 259 1996 Unknown [id number] 2.16.840.1.738938.3.579.2.1 259 1996 Unknown [id number] 2.16.840.1.738873.3.579.2.1 259 1996 Unknown [id number] 2.16.840.1.884154.3.579.2.1 259 1996 Unknown [id number] 2.16.840.1.425976.3.579.2.1 259 1996 Unknown [id number] 2.16.840.1.887867.3.579.2.1 259 1996 Unknown [id number] 2.16.840.1.494069.3.579.2.1 259 1996 Unknown [id number] 2.16.840.1.858985.3.579.2.1 259 1996 Unknown [id number] 2.16.840.1.006522.3.579.2.1 259 1959 Private Health Insurance [id number] Social History Date Type Detail Facility Start: 10-27-2018 End: 05-10-2023 Tobacco smoking status [facility] Never smoked tobacco [facility] Phone: Start: 10-27-2018 End: 05-10-2023 Tobacco use and exposure Smokeless tobacco non-user [facility] Phone: Start: 03-21-2022 Alcohol intake Current non-dr countersinker of alcohol (finding) [facility] Phone: Start: 1995 Sex Assigned At Not on file B ON [employer] Phone: Start: 08-17-2023 Alcohol intake Ex-drinker (finding) [facility] Start: 05-19-2023 History of Social function [facility] Start: 05-19-2023 Tobacco use panel [facility] Start: 05-10-2023 Alcohol Comment Alcohol: 1 or 2 drinks on a typical day/monthly or less Caffeine: 1-2 cups/day coffee [facility] Start: 03-23-2023 [facility] Start: 1995 Sex Assigned At Female N [facility] Start: 05-11-2023 Gender identity Identifies as female gender (finding) [facility] Goals Date Patient Goal Desired Activity /State [...] a routine visit. documented in this encounter [facility] Hospital Discharge instructions 03-22-2022 Instructions Note Date & Type Note Facility 03-22-2022 Hospital Discharg e instructions Mary Morton RN - 03/22/2022 Follow-up with your OB doctor as specified. [facility] OB Department phone: Sarah Dobson, MSN, TECHNICAL ARTIST, ABRAN [address]ICE [address]ETShantanu [facility] [address] DIET Eat a well balanced diet focusing on foods high in fiber and protein. Drink plenty of fluids especially water. To avoid constipation you may take a mild stool softener as recommended by your doctor or registered nurse midwife. ACTIVITY Gradually increase your activity. Resume exercise regimen only after advice by your doctor or registered nurse midwife. Avoid lifting anything heavier than a gallon of milk for SIX weeks. Avoid driving until your doctor or registered nurse midwife has given their approval. Rise slowly from [...] medications as recommended by your doctor or registered nurse midwife for pain If you develop a warm, [...] vitamins as directed by your doctor or registered nurse midwife. Refer to the booklet in the folder/binder for more information. If you feel you need more assistance or have questions, please call Mel Sales IBGEORGETTE, compliance consultant, at or the OB department to [...] your calf. documented in this encounter [facility] [employer] Work Phone: History of Present illness Narrative 03-21-2022 Jenifer Velasquez RN - 03/21/2022 7:30 PM ANNALEETCember Velasquez RN - 03/21/2022 7:[address] CNM - 03/21/2022 9:21 AM EDT Note Date & Type Note Facility 03-21-2022 History of Present illness Narrative Recovery complete at this time. [employer] Accessories Attacher contacted Bharati Dobson CNM at this time to update that patients blood type is crossing over as B negative due to it being that blood type back in 2018. Parach[employer] Accessories Attacher was verifying if patient would need to [...] APRN, CNM documented in this encounter [facility] Work Phone: Clinical Note 01-15-2022 Note Date [...] Placenta Anterior Grade I Weight (g) by Blhudvdzli55.5 % * These measurements result in an [...] signed by Christopher Hoffmann on 01/15/2022 1115 [facility] Evaluation note Note Date & Type Note Facility Evaluation note Diagnosis Term - Primary documented in this encounter [facility] Work Phone: Evaluation note Note Date & Type Note Facility Evaluation note Diagnosis Encounter for supervision of other normal , third trimester- Primary documented in this encounter [facility] Evaluation note Note Date & Type Note Facility Evaluation note Diagnosis Encounter for supervision of other normal , third trimester- Primary documented in this encounter [facility] History of Present illness Narrative Mary [...] FoundDocuments on File Type Date Recorded 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 ACP-Advance Directive ACP-Power of Community Health Outreach Worker Latest Code Status on File Code Status [...] DATE CREATED AUTHOR AUTHOR'S ORGANIZ ATION 03/02/2022 [facility] dical Specialist DATE CREATED AUTHOR AUTHOR'S ORGANIZ ATION 03/24/2022 [facility] DATE CREATED AUTHOR AUTHOR'S ORGANIZ ATION 11/15/2023 [facility] DATE CREATED AUTHOR AUTHOR'S ORGANIZ ATION 12/28/2023 [facility] dical Specialists EPIC Reason for Visit (unrecogniz [...] 20 mL/lumen, 2100 (Due) 0900 (Due)2100 (Due) felwjnw-vbravw-pzdub pertussis (BOOSTRIX) injection 0.5 mL 0.5 mL, [...] every 2-3 minutes with cervical changes or Madison units (MVU) greater than 200 in a [...] Morton RN)0945 (Rate/Dose Change - Provider: Mary Morton RN)1015 (Rate/Dose Change - Provider: Mary Morton [...] Morton RN)1724 (Rate/Dose Change - Provider: Harper Butr RN) PRN Medication Order 03/20/2022 03/21/2022 03/22/2022 [...] Care Teams (unrecognized sec tion and content) Cake Winder Relationship Specialty Start Date End Date Jocelynn Canchola MD [address] [place] [address] [phone] PCP - General Family Medicine 10/26/18 Cake Winder Relationship Specialty Start Date End Date Jocelynn Frankel MD [address] [place] [id number] PCP - General Family Medicine 02/24/23 Cake Winder Relationship Specialty Start Date End Date Jocelynn Frankel MD [address] [place] [address] [phone] PCP - General Family Medicine 02/24/23 Cake Winder Relationship Specialty Start Date End Date Jocelynn Frankel MD [address] [place] [address] [phone] PCP - General Family Medicine 02/24/23 FOR [...] BE BASED ON THE PRIMARY CLINICAL RECORDS. [employer] [facility]. provides no warranty or guarantee of the accuracy or completeness of information in this document.
--- NOTE | 2024-01-13 09:19 | PC.NURSE ---
Klaudia and 5 week old Jesus arrive for support. Infant doing well today, nasal congestion much improved from last visit. Mom relates has lingering cough but that has improved greatly. Infant has returned to usual feeding schedule and amounts taken from bottle. Mom maintains milk supply by pumping frequently, and direct at night. Of note infant shows over all tension in body, shoulders raised , arms flexed and tight, knees flexed and tight as well. Mom relates she holds herself like this all the time difficult to dress and diaper due to tight body posture. Infant noted to have slight asymmetry of mouth, left side pull downward during stretching, yawning or other facial expressions. This is not noted with every movement, mom states she has noted this previously as well. Discussed possible evaluation for body work through craniosacral therapist or chiropractor. Given list for same. Pt consent to notes being shared with Federico IT NETWORK ARCHITECT as infant's PCP. Mom and baby leaves with no further concerns and will call LC as needed.
== END 2024-01-13 09:27 | disposition home or self-care (01) ==
LOC: FBCO 08:25
PROVIDERS: PCP Family Medicine; Visit Provider Midwife
DX: Z39.1 Encounter for care and examination of lactating mother (principal)
CPT/HCPCS: G0463